=== PATIENT | female | born 1985 | race Caucasian/White ===

== ENCOUNTER → 2019-04-30 | Outpatient (CLI) | payer OTHER, SELFPAY ==
[2019-04-16 10:52] VITALS: BMI 21.7
[2019-04-30 14:26] LABS: hCG Titer Quant., Serum 2840 mIU/mL (1-3)
== END | disposition home or self-care (01) ==
LOC: PAVLAB 13:23
PROVIDERS: Visit Provider Nurse Practitioner Women's Health
DX: O03.9 Complete or unspecified spontaneous abortion without complication (principal)
CPT/HCPCS: 36415; 84702

== ENCOUNTER → 2019-05-02 | Outpatient (CLI) | payer OTHER, SELFPAY ==
[2019-04-16 10:52] VITALS: BMI 21.7
[2019-05-02 12:50] LABS: hCG Titer Quant., Serum 5351 mIU/mL (1-3)
== END | disposition home or self-care (01) ==
LOC: LAB 11:47
PROVIDERS: Nurse Practitioner Women's Health; Family Provider Nurse Practitioner Family; PCP Nurse Practitioner Family; Referring Provider Obstetrics & Gynecology; Visit Provider Obstetrics & Gynecology
DX: O03.9 Complete or unspecified spontaneous abortion without complication (principal)
CPT/HCPCS: 36415; 84702

== ENCOUNTER → 2019-05-09 | Outpatient (CLI) | payer OTHER, SELFPAY ==
[2019-04-16 10:52] VITALS: BMI 21.7
--- NOTE | 2019-05-09 11:26 | US_ITS ---
HISTORY: Assess viability. LMP 03/18/2019. FRANKLIN based on LMP 12/23/2019 61 images. Endovaginal imaging only. Findings: The cervix is closed. Within the uterine fundus is a gestational sac with a double decidual reaction. Myometrium is homogeneous. Within the gestational sac is a yolk sac. The right ovary measures 2.7 x 1.5 x 1.5 cm. Color Doppler and pulse Doppler imaging suggestive of a right ovarian parenchyma. The left ovary measures 2.1 x 3 x 1.9 cm. Color and pulse-wave Doppler imaging is present within the left ovary. Inner yolk sac diameter is 2 mm. Mean sac diameter is 1.5 cm. Rankin-rump length is 8 mm. heart motion is detected at 115 bpm. US/Transvaginal w/Preg US IMPRESSION: SLIUP. EGA 6W5D. FRANKLIN 12/28/2019. at 0101 Reported and signed by: Danny Bautista MD Electronically Signed: Danny Bautista MD at 1:00 EDT Tel , Service support ,
== END | disposition home or self-care (01) ==
PROVIDERS: Family Provider Nurse Practitioner Family; PCP Nurse Practitioner Family; Referring Provider Nurse Practitioner Women's Health; Visit Provider Nurse Practitioner Women's Health
DX: O36.80X0 Pregnancy with inconclusive fetal viability, not applicable or unspecified (principal); Z3A.00 Weeks of gestation of pregnancy not specified; Z87.59 Personal history of other complications of pregnancy, childbirth and the puerperium
CPT/HCPCS: 76817

== ENCOUNTER → 2019-05-19 | Outpatient (CLI) | payer OTHER, SELFPAY ==
[2019-05-19 16:26] VITALS: BMI 21.7
[2019-05-19 18:50] LABS: Chlamydia Trachomatis by PCR Negative (Negative); Neisserai gonorrhoeae by PCR Negative (Negative); Probe Check PASS; Sample Adequacy Control PASS; Specimen Processing Control PASS
== END | disposition home or self-care (01) ==
LOC: LABSPEC 16:27
PROVIDERS: Family Provider Nurse Practitioner Family; PCP Family Medicine; Referring Provider Obstetrics & Gynecology; Visit Provider Obstetrics & Gynecology
DX: Z34.90 Encounter for supervision of normal pregnancy, unspecified, unspecified trimester (principal)
CPT/HCPCS: 87086; 87088; 87491; 87591

== ENCOUNTER → 2019-06-18 | Outpatient (CLI) | payer OTHER, SELFPAY ==
[2019-06-18 14:58] VITALS: BMI 22.6
[2019-06-18 17:10] LABS: Absolute Lymphocyte Count 1.21 X10^3/uL (0.83-4.51); Basophil# 0.04 X10^3/uL; Basophil% 0.5 % (0-1); Eosinophil# 0.06 X10^3/uL; Eosinophils% 0.8 % (0-5); Hematocrit 38.5 % (37-47); Hemoglobin 12.7 g/dL (12.0-15.0); Lymphocyte # 1.21 X10^3/ul (4.0); Lymphocyte % 15.2 % (19-41); Mean Corpuscular Hgb 29.5 pg (27.0-32.0); Mean Corpuscular Volume 89.3 fL (81-99); Mean Platelet Vol. 12.9 fl (6.2-12.0); Monocyte% 7.5 % (0-10); NRBC Flagged by Analyzer 0 % (0-5); Neutrophil # 6.03 X10^3/uL (2.7-7.7); Neutrophil % 75.6 % (47-70); Platelet Count 131 K/mm3 (150-450); RBC Distribution Width CV 13.6 % (11.6-14.6); RBC Distribution Width SD 44.7 fl (35.1-43.9); Red Blood Count 4.31 M/mm3 (4.2-5.4)
[2019-06-18 18:30] LABS: HIV - WCH Non-Reactive (Nonreactive)
[2019-06-20 01:33] LABS: Rapid Plasmin Reagin (RPR) NONREACTIVE (NONREACTIVE)
== END | disposition home or self-care (01) ==
LOC: LAB 15:45
PROVIDERS: Family Provider Nurse Practitioner Family; PCP Nurse Practitioner Family; Referring Provider Obstetrics & Gynecology; Visit Provider Obstetrics & Gynecology
DX: Z34.90 Encounter for supervision of normal pregnancy, unspecified, unspecified trimester (principal)
CPT/HCPCS: 36415; 85025; 86592; 86703; 86762; 86850; 86900

== ENCOUNTER → 2019-08-08 | Outpatient (CLI) | payer OTHER, SELFPAY ==
[2019-07-18 11:20] VITALS: BMI 22.6
--- NOTE | 2019-08-08 08:41 | US_ITS ---
STUDY: SECOND AND THIRD TRIMESTER OBSTETRICAL ULTRASOUND REASON FOR EXAM: Female, 34 years old anatomy. LMP: March 23, 2019. TECHNIQUE: Transabdominal TECHNICAL QUALITY: Adequate. PRIOR ULTRASOUND: Comparison is made with prior study dated May 09, 2019. FINDINGS: There is a single intrauterine fetus. The fetus is in a cephalic presentation. There is demonstrated cardiac activity with a heart rate of 149 bpm. There is a normal amniotic fluid volume. The largest amniotic fluid pocket measures 3.0 cm x 4.7 cm. The amniotic fluid index (TRACEY) is normal. The placenta is anterior in location and is not low lying. There are Grade 0 placental changes. The cervix measures 5 cm in length. The bilateral adnexal regions are normal. BIOMETRY: BPD: 4.78 cm: 20 weeks, 4 days HC: 17.08 cm: 19 weeks, 5 days AC: 14.56 cm: 20 weeks, 0 days FL: 3.09 cm: 19 weeks, 5 days CI: 85% FL/BPD: 65% FL/HC: FL/AC: 21% HC/AC: 1.17 age by current US: 20 weeks, 0 days. FRANKLIN by current US: December 26, 2019. Estimated weight: 311 grams, +/- 45 grams, 48 %. age by prior US: 19 weeks, 5 days. FRANKLIN by prior US: December 28, 2019. Age by LMP: 19 weeks, 5 days. FRANKLIN by LMP: December 28, 2019. ANATOMY: Gender: Male Cranium: Normal lateral ventricles. Normal choroid plexus. Normal cerebellum. Normal cisterna magna. Normal face, nose and lips. Chest: Normal 4-chamber heart. Abdomen/Pelvis: Normal diaphragm. Normal stomach. Normal abdominal wall. Normal cord insertion. Normal 3 vessel cord. Normal kidneys. Normal bladder. The left renal pelvis measures 3 mm the right renal pelvis measures 3.6 mm. Spine: Normal cervical spine. Normal thoracic spine. Normal lumbar spine. Normal sacrum. Extremities: Normal bilateral upper extremities. Normal bilateral lower extremities. US/OB Anatomy Scan IMPRESSION: Single live intrauterine gestation with a mean gestational age of 19 weeks and 5 days. The measurements obtained today follow within thin the normal expected range. Electronically Signed: Evan Wilhelm, at 15:20 EDT , Service support ,
== END | disposition home or self-care (01) ==
LOC: OPUS 08:41
PROVIDERS: Family Provider Nurse Practitioner Family; PCP Nurse Practitioner Family; Referring Provider Obstetrics & Gynecology; Visit Provider Obstetrics & Gynecology
DX: O09.90 Supervision of high risk pregnancy, unspecified, unspecified trimester (principal); Z3A.00 Weeks of gestation of pregnancy not specified
CPT/HCPCS: 76805

== ENCOUNTER → 2019-10-03 | Outpatient (CLI) | payer OTHER, SELFPAY ==
[2019-10-03 08:32] VITALS: BMI 25.7
[2019-10-03 10:01] LABS: Absolute Lymphocyte Count 0.97 X10^3/uL (0.83-4.51); Absolute Neutrophil Count 7.6 X10^3/uL (2.0-7.7); Basophil# 0.05 X10^3/uL; Basophil% 0.5 % (0-1); Eosinophil# 0.12 X10^3/uL; Eosinophils% 1.2 % (0-5); Hematocrit 35.2 % (37-47); Hemoglobin 11.5 g/dL (12.0-15.0); Lymphocyte # 0.97 X10^3/ul (4.0); Mean Corp Hgb Conc 32.7 g/dL (32-36); Mean Corpuscular Hgb 30.5 pg (27.0-32.0); Mean Corpuscular Volume 93.4 fL (81-99); Mean Platelet Vol. 11.8 fl (6.2-12.0); Monocyte# 0.82 X10^3/uL; Monocyte% 8.4 % (0-10); NRBC Flagged by Analyzer 0 % (0-5); Neutrophil # 7.62 X10^3/uL (2.7-7.7); Neutrophil % 78.3 % (47-70); Platelet Count 117 K/mm3 (150-450); RBC Distribution Width CV 13.5 % (11.6-14.6); RBC Distribution Width SD 46.5 fl (35.1-43.9); Red Blood Count 3.77 M/mm3 (4.2-5.4); White Blood Count 9.7 K/mm3 (4.4-11.0)
[2019-10-03 10:31] LABS: Glucose Challenge Gest 1H 50g 114 mg/dL (70-140)
== END | disposition home or self-care (01) ==
LOC: PAVLAB 08:50
PROVIDERS: Family Provider Nurse Practitioner Family; PCP Nurse Practitioner Family; Referring Provider Nurse Practitioner Women's Health; Visit Provider Nurse Practitioner Women's Health
DX: Z34.90 Encounter for supervision of normal pregnancy, unspecified, unspecified trimester (principal)
CPT/HCPCS: 36415; 82950; 85025

== ENCOUNTER → 2019-10-17 08:30 | Outpatient (CLI) | payer OTHER, SELFPAY ==
[2019-10-17 08:06] VITALS: BMI 25.7
[2019-10-17 09:46] LABS: Hepatitis B Surface Antigen Non-Reactive (Nonreactive)
== END ==
PROVIDERS: Family Provider Nurse Practitioner Family; PCP Nurse Practitioner Family; Referring Provider Obstetrics & Gynecology; Visit Provider Obstetrics & Gynecology
DX: O09.90 Supervision of high risk pregnancy, unspecified, unspecified trimester (principal)
CPT/HCPCS: 36415; 87340

== ENCOUNTER → 2019-12-05 08:46 | Outpatient (CLI) | payer SELFPAY ==
[2019-11-14 08:30] VITALS: BMI 25.7
[2019-12-05 08:03] VITALS: BMI 25.7
--- NOTE | 2019-12-05 08:47 | US_ITS ---
STUDY: SECOND AND THIRD TRIMESTER OBSTETRICAL ULTRASOUND REASON FOR EXAM: Female, 34 years old growth LMP: March 23, 2019. TECHNIQUE: Transabdominal TECHNICAL QUALITY: Adequate. PRIOR ULTRASOUND: Comparison is made with prior examination dated August 08, 2019. FINDINGS: There is a single intrauterine fetus. The fetus is in a cephalic presentation. There is demonstrated cardiac activity with a heart rate of 137 bpm. There is a normal amniotic fluid volume. The largest amniotic fluid pocket measures 4.0 cm. The amniotic fluid index (TRACEY) is 11.0 cm. The placenta is anterior in location and is not low lying. There are Grade 1 placental changes. The cervix measures 4.0 cm in length. The adnexal regions are not visualized. BIOMETRY: BPD: 9.48 cm: 38 weeks, 4 days HC: 33.72 cm: 38 weeks, 4 days AC: 32.96 cm: 36 weeks, 6 days FL: 7.11 cm: 36 weeks, 3 days CI: 83% FL/BPD: 75% FL/HC: FL/AC: 22% HC/AC: 1.02 age by current US: 37 weeks, 6 days. FRANKLIN by current US: December 20, 2019. Estimated weight: 3135 grams, +/- 464 grams, 64 %. age by prior US: 37 weeks, 0 days. FRANKLIN by prior US: December 26, 2019. Age by LMP: 36 weeks, 5 days. FRANKLIN by LMP: December 28, 2019. US/OB Limited With Biometrics IMPRESSION: Single live uterine gestation with a mean gestational age of 37 weeks. The measurements obtained today fall within the normal expected range. Electronically Signed: Evan Wilhelm, at 13:11 EST , Service support ,
== END ==
PROVIDERS: Family Provider Nurse Practitioner Family; PCP Nurse Practitioner Family; Referring Provider Nurse Practitioner Women's Health; Visit Provider Nurse Practitioner Women's Health
DX: O09.90 Supervision of high risk pregnancy, unspecified, unspecified trimester (principal); Z3A.00 Weeks of gestation of pregnancy not specified
CPT/HCPCS: 76816; 87081

== ENCOUNTER 2019-12-29 21:57 | Inpatient (IN) | payer OTHER, SELFPAY ==
[2019-10-17 08:06] VITALS: BMI 25.7
[2019-12-29 08:39] VITALS: BMI 25.7
[2019-12-29 20:55] VITALS: BMI 28.0
[2019-12-29] MEDS: Lactated Ringers 500 ML 999 ML IV ×2 (22:50→23:30)
[2019-12-29 22:59] LABS: Absolute Lymphocyte Count 1.21 X10^3/uL (0.83-4.51); Absolute Neutrophil Count 7.8 X10^3/uL (2.0-7.7); Basophil# 0.03 X10^3/uL; Basophil% 0.3 % (0-1); Eosinophil# 0.03 X10^3/uL; Eosinophils% 0.3 % (0-5); Hemoglobin 12.4 g/dL (12.0-15.0); Lymphocyte # 1.21 X10^3/ul (4.0); Mean Corp Hgb Conc 32.6 g/dL (32-36); Mean Corpuscular Hgb 29.1 pg (27.0-32.0); Mean Corpuscular Volume 89.2 fL (81-99); Mean Platelet Vol. 13.9 fl (6.2-12.0); Monocyte# 0.93 X10^3/uL; Monocyte% 9.2 % (0-10); NRBC Flagged by Analyzer 0 % (0-5); Neutrophil # 7.81 X10^3/uL (2.7-7.7); Neutrophil % 77.3 % (47-70); Platelet Count 106 K/mm3 (150-450); RBC Distribution Width CV 13.2 % (11.6-14.6); RBC Distribution Width SD 42.6 fl (35.1-43.9); Red Blood Count 4.26 M/mm3 (4.2-5.4); White Blood Count 10.1 K/mm3 (4.4-11.0)
--- NOTE | 2019-12-29 23:18 | PCM.HP.OB ---
- Problem List (1) Active labor at term Status: Acute (2) Supervision of high risk , antepartum Status: Acute Comment: PRR FRANKLIN 12/28/19 boy (name surprise) Alejo (3) Status: Acute Qualifiers: Comment: carrier, genetic, and ntd screening declined. NL anatomy US (4) Advanced maternal age (AMA) in Status: Acute Comment: discussed genetic screening options. nl 36 week scan History Date of Admission: 12/28/19 Final FRANKLIN: 12/27/19 Gestational age: 40 Weeks and 2 Days History of this : This is a 34 year-old, at 40 weeks gestational age presents IAL with regular ctx, no vb lof good fm. she has had a complicated by AMA. Allergies amoxicillin Allergy (Mild, Verified 12/29/19 08:38) hives Home Medications: Home Medications Vits [Prenatabs FA] 1 tab PO DAILY 12/29/19 Smoking Status: Never smoker Alcohol: None Number of Fetus(es): 1 NST - FHR Rate Baby A Baseline: 130 Variability:: Moderate Accelerations:: 15 x 15 Decelerations:: None NST Reactive:: Yes FHR Category:: Category I Uterine Activity:: q 2-4 History Past Pregnancies: Past Pregnancies Delivery Date Name GA/ Weeks Outcome Route Wt Sex Labor Length Anesthesia Delivery Location Provider FOB Labs: Mom's Labs & Results 12/29/19 12/29/19 22:35 22:35 WBC 10.1 RBC 4.26 Hgb 12.4 Hct 38.0 MCV 89.2 MCH 29.1 MCHC 32.6 RDW Std Deviation 42.6 RDW Coeff of Lisa 13.2 Plt Count 106 L MPV 13.9 H Immature Gran % (Auto) 0.900 Neut % (Auto) 77.3 H Lymph % (Auto) 12.0 L [place] % (Auto) 9.2 Eos % (Auto) 0.3 Baso % (Auto) 0.3 Absolute Neuts (auto) 7.8 H Absolute Lymphs (auto) 1.21 Nucleated RBC % 0 Blood Type Pending Antibody Screen Pending Social History Smoking Status Never smoker Expected Infant Delivery Method: Spontaneous Vaginal Review of Systems Constitutional: Denies: Fever, Malaise Eyes: Denies: Blurred vision, Vision Change HEENT: Denies: Head Aches, Visual Changes Cardiovascular: Denies: Chest Pain, Palpitations Respiratory: Denies: Cough, Shortness of Breath, Wheezing Gastrointestinal: Denies: Abdominal Pain, Diarrhea, Nausea, Vomiting Genitourinary: Denies: Dysuria, Hematuria Musculoskeletal: Denies: Joint Pain, Muscle pain Skin: Denies: Lesions, Rash Neurological: Denies: Blurred vision, Focal weakness, Headaches Psychiatric: Denies: Anxiety, Depression Endocrine: Denies: Heat/ Cold Intolerance Hematologic/ Lymphatic: Denies: Easy Bruising, Easy Bleeding Physical Exam General: Alert, Cooperative, No apparent distress HEENT: Atraumatic, Normocephalic. Negative for: Thyromegaly, Lymphadenopathy Cardiovascular: Regular rate Lungs: Normal air movement Abdomen: Soft, Non Tender, Gravid Neurological: Deep Tendon Reflexes 2+/4 and Symmetrical, Neuro grossly intact. 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 Negative for: Vulvar lesions Estimated gestational size: Appropriate for gestational size Presentation: Cephalic Assessment/Plan All Active Problems (Last Reviewed 12/26/19 @ 07:54 by Fouzia Fregoso) Active labor at term (Acute) Supervision of high risk , antepartum (Acute) (Acute) Advanced maternal age (AMA) in (Acute) This is a 34 year-old, G 1P0 at 40 weeks gestational age presents IAL. Patient presents IAL, plan expectant management for , pitocin/AROM PRN if needed. Pain management: plans epidural. GBS neg. Management of any complications: none I have reviewed the [facility], [facility] and made any clinically relevant updates.
[2019-12-29] MEDS: Ondansetron 4 MG/2 ML Vial IV (23:48)
[2019-12-29] MEDS: fentaNYL-bupivacaine (epidural) 100 ML BAG EPIDURAL (23:55)
[2019-12-29] MEDS: Lactated Ringers 1,000 ML 50 ML IV (23:56)
[2019-12-30] MEDS: fentaNYL-bupivacaine (epidural) 100 ML BAG EPIDURAL (05:01)
[2019-12-30] MEDS: Ondansetron 4 MG/2 ML Vial IV (05:08)
[2019-12-30] MEDS: 0.9% Saline Lock 10 ML Syringe IV (05:08)
[2019-12-30] MEDS: Lactated Ringers 1,000 ML 200 ML IV (06:27)
--- NOTE | 2019-12-30 06:49 | OP.PCM_ITS ---
Problem List (1) Active labor at term Status: Acute (2) Supervision of high risk , antepartum Status: Acute Comment: PRR FRANKLIN 12/28/19 boy (name surprise) Alejo (3) Status: Acute Qualifiers: Comment: carrier, genetic, and ntd screening declined. NL anatomy US (4) Advanced maternal age (AMA) in Status: Acute Comment: discussed genetic screening options. nl 36 week scan Vaginal Delivery Maternal Presentation: Active Labor ial 40 weeks Amniotic Fluid Description: Clear Final FRANKLIN: 12/28/19 Gestational age: 40 Weeks and 2 Days Date of Procedure: 12/30/19 Pre-Operative Diagnosis: ial Post-Operative Diagnosis: same Surgery/ Procedure Performed: Spontaneous Vaginal Delivery Type of Anesthesia: Epidural Description of Procedure: Patient began pushing and delivered the head in the YOANA presentation. The head was delivered atraumatically. The anterior and posterior shoulders delivered without complication followed by the rest of the and the infant was placed on the maternal abdomen. Delayed cord clamping was employed for approximately 60 seconds. Cord was clamped and cut and gentle traction was applied to the cord and the placenta delivered spontaneously immediately following it was noted to be intact with three-vessel cord. The perineum and vagina were inspected and a second-degree perineal laceration that was repaired in the usual fashion with 3-0 Vicryl Rapide. EBL was 300 cc. Patient and tolerated delivery well. Placental Delivery Description: Spontaneous Placenta Disposition: [facility] Cord Vessel Description: 3 Vessels Cord Entanglement: None Estimated Blood Loss: 300 A gender: Male Episiotomy Description: None Laceration: Perineal Extension/lac, 2nd degree Medications given after delivery: IV Pitocin Complications: None Multi Select Codes - Urinary/Genital Urinary/Genital CPT Codes: 11799 Vaginal Delivery [facility]
[2019-12-30] MEDS: Oxytocin 30 units/NS 500 ml 30 UNITS/500 ML IV.SOLN 334 UNITS IV (07:38)
[2019-12-30 11:54] VITALS: BP 108/60; PULSE 81; RESP 20; TEMP 36.6
--- NOTE | 2019-12-30 11:56 | NURSING ---
Epidural removal during observation
[2019-12-30] MEDS: Docusate Sodium 100 MG Capsule PO ×2 (12:14→22:47)
[2019-12-30] MEDS: Dibucaine 30 GM Tube 1 APPLIC TOPICAL (12:14)
--- NOTE | 2019-12-30 13:38 | NURSING ---
epidural cath removed with blue tip intact. tolerated well. Pt up to BR, pericare, steady when up.
[2019-12-30] MEDS: Naproxen 250 MG Tablet 500 MG PO (13:58)
[2019-12-30] MEDS: oxyCODONE 5 MG Tablet PO ×4 (14:42→22:46)
[2019-12-30 15:52] VITALS: BP 111/60; PULSE 69; RESP 16; TEMP 36.8
[2019-12-30 19:39] VITALS: BP 104/61; PULSE 70; RESP 16; TEMP 36.8
--- NOTE | 2019-12-30 22:00 | NURSING ---
this RN provided bedside report to bisi MONTELONGO. that rn to assume care of pt at this time.
[2019-12-30 23:10] VITALS: BP 110/49; PULSE 73; RESP 16; TEMP 37.2
[2019-12-31] MEDS: Naproxen 250 MG Tablet 500 MG PO ×3 (03:15→19:48)
[2019-12-31 03:23] VITALS: BP 105/59; PULSE 82; RESP 16; TEMP 36.6
[2019-12-31] MEDS: Acetaminophen 500 MG Tablet 1000 MG PO (07:56)
[2019-12-31] MEDS: Docusate Sodium 100 MG Capsule PO ×2 (07:57→22:19)
[2019-12-31 07:59] VITALS: BP 105/55; PULSE 69; RESP 16; TEMP 37.1; O2SAT 96
--- NOTE | 2019-12-31 09:30 | PCM.PN.OB ---
Patient Problems: Active and Suspected Problems (Last Reviewed 12/26/19 @ 07:54 by Fouzia Fregoso) Active labor at term (Acute) Subjective: Doing well, discomfort due to perineal hematoma and hemorrhoid. Denies CP, SOB, N,V. Ambulating well, tolerating po. Lochia moderate, going well. - Physical Exam Vitals/I&O's: Vital Signs Temp Pulse Resp BP Pulse Ox 98.8 F 69 16 105/55 L 96 12/31/19 07:59 12/31/19 07:59 12/31/19 07:59 12/31/19 07:59 12/31/19 07:59 Oxygen Delivery Method Room Air Weight: 174 lb 2.643 oz Body Mass Index (BMI) 28.0 Intake and Output for Last 24 Hours 12/29/19 12/30/19 12/31/19 23:59 23:59 23:59 Intake Total 500 / 500 1532.50 / 1532.50 Output Total 500 / 500 Balance 500 / 500 1032.50 / 1032.50 General: Oriented x3 Abdomen: Soft, Non Tender, - - FF below U Current Medications Acetaminophen (Tylenol) 1,000 mg PO Q8H PRN PRN PRN Reason: Pain Score 1-3/10 Last Admin: 12/31/19 07:56 Dose: 1,000 mg Documented by: Bisacodyl (Dulcolax) 10 mg RECTAL UD PRN PRN Reason: If no BM Dibucaine (Dibucaine) 1 applic TOPICAL TID PRN PRN; Protocol PRN Reason: Discomfort Last Admin: 12/30/19 12:14 Dose: 1 oint Documented by: Docusate Sodium (Colace) 100 mg PO BID ALTA Last Admin: 12/31/19 07:57 Dose: 100 mg Documented by: Hydrocortisone (Hytone) 1 applic TOPICAL TID PRN PRN; Protocol PRN Reason: Discomfort Methylergonovine Maleate (Methergine) 0.2 mg IM X1 PRN PRN Reason: Excess bleeding/uterine atony Naproxen (Naprosyn) 500 mg PO Q8H PRN PRN PRN Reason: Pain Score 1-3/10 Last Admin: 12/31/19 03:15 Dose: 500 mg Documented by: Ondansetron HCl (Zofran) 4 mg IV Q4H PRN PRN PRN Reason: Nausea Oxycodone HCl (Oxyir) 5 - 10 mg PO Q4H PRN PRN PRN Reason: Pain Score 4-10/10 Last Admin: 12/30/19 22:46 Dose: 10 mg Documented by: Senna/Docusate Sodium (Senokot-S, Isis-Colace) 1 - 2 tablet PO DAILY PRN PRN PRN Reason: Constipation Simethicone (Mylicon) 80 mg PO PCHS PRN PRN Reason: Indigestion/Stomach pain Sodium Chloride () 5 - 15 ml IV UD PRN PRN Reason: SALINE FLUSH Medical Necessity - Tobacco Use Smoking Status: Never smoker Assessment/Plan All Active Problems (Last Reviewed 12/26/19 @ 07:54 by Fouzia Fregoso) Active labor at term (Acute) Supervision of high risk , antepartum (Acute) (Acute) Advanced maternal age (AMA) in (Acute) s/p PPD # 1 1. routine post delivery care 2. breast feeding- support given 3. rh positive 4. rubella immune 5. discussed management of hematoma, hemorrhoids, ice, pain med, topical pain management, stool softener.
[2019-12-31 14:00] VITALS: BP 104/59; PULSE 78; RESP 16; TEMP 37.5; O2SAT 96
[2019-12-31 18:00] VITALS: BP 97/61; PULSE 72; RESP 16; TEMP 37.1; O2SAT 96
[2019-12-31 19:57] VITALS: BP 110/63; PULSE 80; RESP 16; TEMP 36.8
[2020-01-01 01:30] VITALS: BP 118/73; PULSE 70; RESP 16; TEMP 36.6
[2020-01-01] MEDS: Naproxen 250 MG Tablet 500 MG PO (04:17)
--- NOTE | 2020-01-01 08:10 | PCM.PN.OB ---
Patient Problems: Active and Suspected Problems (Last Reviewed 12/26/19 @ 07:54 by Fouzia Fregoso) Active labor at term (Acute) Subjective: Doing well, no complaints.Pain controlled. Denies CP, SOB, N,V. Ambulating well, tolerating po. Lochia moderate, going well. Perineum feeling better(hematoma). - Physical Exam Vitals/I&O's: Vital Signs Temp Pulse Resp BP Pulse Ox 98 F 70 16 118/73 96 01/01/20 01:30 01/01/20 01:30 01/01/20 01:30 01/01/20 01:30 12/31/19 18:00 Oxygen Delivery Method Room Air Weight: 174 lb 2.643 oz Body Mass Index (BMI) 28.0 Intake and Output for Last 24 Hours 12/30/19 12/31/19 01/01/20 23:59 23:59 23:59 Intake Total 1532.50 / 1532.50 Output Total 500 / 500 Balance 1032.50 / 1032.50 General: Alert, Oriented x3 Abdomen: Non Tender, - - FF below U Current Medications Acetaminophen (Tylenol) 1,000 mg PO Q8H PRN PRN PRN Reason: Pain Score 1-3 Last Admin: 12/31/19 07:56 Dose: 1,000 mg Documented by: Bisacodyl (Dulcolax) 10 mg RECTAL UD PRN PRN Reason: If no BM Dibucaine (Dibucaine) 1 applic TOPICAL TID PRN PRN; Protocol PRN Reason: Discomfort Last Admin: 12/30/19 12:14 Dose: 1 oint Documented by: Docusate Sodium (Colace) 100 mg PO BID ALTA Last Admin: 12/31/19 22:19 Dose: 100 mg Documented by: Hydrocortisone (Hytone) 1 applic TOPICAL TID PRN PRN; Protocol PRN Reason: Discomfort Methylergonovine Maleate (Methergine) 0.2 mg IM X1 PRN PRN Reason: Excess bleeding/uterine atony Naproxen (Naprosyn) 500 mg PO Q8H PRN PRN PRN Reason: Pain Score 1-3/10 Last Admin: 01/01/20 04:17 Dose: 500 mg Documented by: Ondansetron HCl (Zofran) 4 mg IV Q4H PRN PRN PRN Reason: Nausea Oxycodone HCl (Oxyir) 5 - 10 mg PO Q4H PRN PRN PRN Reason: Pain Score 4-10/10 Last Admin: 12/30/19 22:46 Dose: 10 mg Documented by: Senna/Docusate Sodium (Senokot-S, Isis-Colace) 1 - 2 tablet PO DAILY PRN PRN PRN Reason: Constipation Simethicone (Mylicon) 80 mg PO PCHS PRN PRN Reason: Indigestion/Stomach pain Sodium Chloride () 5 - 15 ml IV UD PRN PRN Reason: SALINE FLUSH Medical Necessity - Tobacco Use Smoking Status: Never smoker Assessment/Plan All Active Problems (Last Reviewed 12/26/19 @ 07:54 by Fouzia Fregoso) Active labor at term (Acute) Supervision of high risk , antepartum (Acute) (Acute) Advanced maternal age (AMA) in (Acute) s/p PPD # 2 1. routine post delivery care 2. breast feeding- support given 3. rh positive 4. rubella immune 5. continue stool softeners, OTC oral and topical pain relief 6. home today
--- NOTE | 2020-01-01 08:15 | DCINST_ITS ---
Additional Instructions: If you experience any of the following, contact your healthcare provider. * Bleeding that soaks a pad every hour for 2 hours * Fever 100.4 or higher * Unrelieved incision or abdominal pain * Swelling, redness, discharge or bleeding from your incision or episiotomy site * Your incision begins to separate * Problems urinating (including inability to urinate or burning while urinating). * Visual changes * Severe headache * Flu-like symptoms * Pain or redness in one of both of your breasts * Pain, warmth, tenderness or swelling in your legs, especially the calf area * Frequent nausea and vomiting * Symptoms of depression or anxiety If you experience any of the following, call 911 or go to the nearest Emergency Room. * Chest pain * Problems breathing * Seizure activity * Partial or complete paralysis of a body part, slurred speech, weakness or drooping of the face, or a sudden inability to walk or hold your balance Allergies/Adverse Reactions: Allergies amoxicillin Allergy (Mild, Verified 12/29/19 08:38) hives Medications to take at Discharge Vits [Prenatabs FA] 1 tab PO DAILY 12/29/19 Primary Care Physician: Elizabeth Bolden NP-C [Primary Care Provider] - Test Results: Test results from this visit will be discussed in further detail at your follow- up appointment, if applicable.
--- NOTE | 2020-01-01 08:15 | PCM.DCVAG ---
Additional Instructions: If you experience any of the following, contact your healthcare provider. Bleeding that soaks a pad every hour for 2 hours Fever 100.4 or higher Unrelieved incision or abdominal pain Swelling, redness, discharge or bleeding from your incision or episiotomy site Your incision begins to separate Problems urinating (including inability to urinate or burning while urinating). Visual changes Severe headache Flu-like symptoms Pain or redness in one of both of your breasts Pain, warmth, tenderness or swelling in your legs, especially the calf area Frequent nausea and vomiting Symptoms of depression or anxiety If you experience any of the following, call 911 or go to the nearest Emergency Room. Chest pain Problems breathing Seizure activity Partial or complete paralysis of a body part, slurred speech, weakness or drooping of the face, or a sudden inability to walk or hold your balance Allergies/Adverse Reactions: Allergies amoxicillin Allergy (Mild, Verified 12/29/19 08:38) hives Medications to take at Discharge Vits [Prenatabs FA] 1 tab PO DAILY 12/29/19 Primary Care Physician: Elizabeth Bolden NP-C [Primary Care Provider] - Test Results: Test results from this visit will be discussed in further detail at your follow-up appointment, if applicable.
[2020-01-01 08:35] VITALS: BP 109/64; PULSE 72; RESP 16; TEMP 36.8
[2020-01-01] MEDS: Acetaminophen 500 MG Tablet 1000 MG PO (08:58)
[2020-01-01] MEDS: Docusate Sodium 100 MG Capsule PO (10:34)
[2020-01-01 11:08] VITALS: BP 109/64; PULSE 72; RESP 16; TEMP 36.8
== END 2020-01-01 11:50 | disposition home or self-care (01) | DRG 806 ==
LOC: WPOUT 21:59 → WP 21:59
PROVIDERS: Admitting Provider Obstetrics & Gynecology; PCP Nurse Practitioner Family; Referring Provider Obstetrics & Gynecology; Visit Provider Obstetrics & Gynecology
DX: O48.0 Post-term pregnancy (principal); O87.2 Hemorrhoids in the puerperium; Z37.0 Single live birth; Z3A.40 40 weeks gestation of pregnancy; O70.1 Second degree perineal laceration during delivery; O90.2 Hematoma of obstetric wound
CPT/HCPCS: 59025; 59050; 85025; 86850; 86900; 86901; 99218; J7120; A4216; G0378; J2405

== ENCOUNTER → 2020-01-06 | Outpatient (CLI) | payer OTHER, SELFPAY ==
[2020-01-06 16:16] VITALS: BMI 28.0
[2020-01-06 18:12] LABS: Absolute Lymphocyte Count 1.32 X10^3/uL (0.83-4.51); Basophil# 0.07 X10^3/uL; Basophil% 0.9 % (0-1); Eosinophil# 0.22 X10^3/uL; Eosinophils% 2.9 % (0-5); Hematocrit 38.5 % (37-47); Hemoglobin 12.1 g/dL (12.0-15.0); Lymphocyte # 1.32 X10^3/ul (4.0); Lymphocyte % 17.6 % (19-41); Mean Corp Hgb Conc 31.4 g/dL (32-36); Mean Corpuscular Hgb 28.8 pg (27.0-32.0); Mean Corpuscular Volume 91.7 fL (81-99); Mean Platelet Vol. 13.5 fl (6.2-12.0); Monocyte# 0.81 X10^3/uL; Monocyte% 10.8 % (0-10); NRBC Flagged by Analyzer 0 % (0-5); Neutrophil # 5.04 X10^3/uL (2.7-7.7); Neutrophil % 67.3 % (47-70); Platelet Count 168 K/mm3 (150-450); RBC Distribution Width CV 13.5 % (11.6-14.6); RBC Distribution Width SD 45.5 fl (35.1-43.9); White Blood Count 7.5 K/mm3 (4.4-11.0)
[2020-01-06 19:15] LABS: ALB/GLOB Ratio 0.8 RATIO (0.9-2.4); AST(SGOT) 49 U/L (15-37); Alanine Aminotransfer ALT/SGPT 102 U/L (13-56); Albumin, Serum 2.8 g/dL (3.2-5.0); Alkaline Phosphatase 116 U/L (45-117); Anion Gap 6 (5-15); BUN 13 mg/dL (7-18); BUN/Creat Ratio 15.9 RATIO (10-20); Calcium,Total 8.9 mg/dL (8.5-10.1); Chloride 109 mmol/L (98-107); Creatinine, Serum 0.82 mg/dL (0.55-1.02); EST Glomerular Filtration Rate 84 mL/min (>60); Est Glom Filt Rate - Afr Amer 101 mL/min (>60); Globulin 3.4 g/dL (2.2-4.2); Glucose 77 mg/dL (74-106); Potassium 3.9 mmol/L (3.5-5.1); Protein, Total 6.2 g/dL (6.4-8.2); Sodium Level 141 mmol/L (136-145)
== END | disposition home or self-care (01) ==
LOC: LAB 16:23
PROVIDERS: PCP Nurse Practitioner Family; Referring Provider Obstetrics & Gynecology; Visit Provider Obstetrics & Gynecology
DX: R03.0 Elevated blood-pressure reading, without diagnosis of hypertension (principal)
CPT/HCPCS: 36415; 80053; 85025

== ENCOUNTER 2020-01-07 18:00 | Outpatient (CLI) | payer OTHER, SELFPAY ==
[2020-01-06 16:16] VITALS: BMI 28.0
[2020-01-07 18:59] LABS: Hematocrit 38.5 % (37-47); Hemoglobin 12.3 g/dL (12.0-15.0); Mean Corp Hgb Conc 31.9 g/dL (32-36); Mean Corpuscular Hgb 29.1 pg (27.0-32.0); Mean Platelet Vol. 12.8 fl (6.2-12.0); Platelet Count 166 K/mm3 (150-450); RBC Distribution Width CV 13.5 % (11.6-14.6); RBC Distribution Width SD 44.8 fl (35.1-43.9); Red Blood Count 4.23 M/mm3 (4.2-5.4)
[2020-01-07 19:13] LABS: AST(SGOT) 43 U/L (15-37); Alanine Aminotransfer ALT/SGPT 97 U/L (13-56); Creatinine, Serum 0.88 mg/dL (0.55-1.02); EST Glomerular Filtration Rate 76 mL/min (>60); Est Glom Filt Rate - Afr Amer 93 mL/min (>60); Uric Acid 5.6 mg/dL (2.6-6.0)
[2020-01-07 19:20] LABS: International Normalized Ratio 1.1; Partial Thromboplast Time 26.7 Seconds (24.1-36.2); Prothrombin Time (Protime)PT. 13.6 SECONDS (11.7-14.9)
[2020-01-07 19:22] LABS: Creatinine, Urine (random) < 13.00 mg/dL (NO RANGE EST.); Protein, Urine (Random) < 6.0 mg/dL (<11.9)
--- NOTE | 2020-01-08 00:12 | OB.TRI.NOTE ---
- Problem List (1) Elevated liver enzymes Status: Acute History of Present Illness Date of Service: 01/07/20 Was patient seen by the physician?: Yes Reason For Visit: ELEVATED BLOOD PRESSURE - PPM History of Present Illness: 34-year-old G1, P1 1 week presents due to elevated liver enzymes. Patient had complaints of perineal pain with a normal exam but had a borderline elevated blood pressure in the office therefore labs were drawn and liver enzymes were elevated but platelets were within normal limits. She returns today for follow-up blood pressure check and repeat labs. She denies any headache or blurry vision denies any nausea vomiting and her perineum feels improved. Allergies amoxicillin Allergy (Mild, Verified 01/07/20 18:25) hives Laboratory Studies: Laboratory Tests 01/07/20 01/07/20 01/07/20 Range/Units 18:45 18:45 18:45 WBC 7.0 (4.4-11.0) K/mm3 RBC 4.23 (4.2-5.4) M/mm3 Hgb 12.3 (12.0-15.0) g/dL Hct 38.5 (37-47) % MCV 91.0 (81-99) fL MCH 29.1 (27.0-32.0) pg MCHC 31.9 L (32-36) g/dL RDW Std Deviation 44.8 H (35.1-43.9) fl RDW Coeff of Lisa 13.5 (11.6-14.6) % Plt Count 166 (150-450) K/mm3 MPV 12.8 H (6.2-12.0) fl PT 13.6 (11.7-14.9) SECONDS INR 1.1 APTT 26.7 (24.1-36.2) Seconds Creatinine 0.88 (0.55-1.02) mg/dL Est GFR (MDRD) Af Amer 93 (>60) mL/min Est GFR (MDRD) Non-Af 76 (>60) mL/min Uric Acid 5.6 (2.6-6.0) mg/dL AST 43 H (15-37) U/L ALT 97 H (13-56) U/L U Random Total Protein (<11.9) mg/dL Urine Creatinine (NO RANGE EST.) mg/dL Protein/Creatinin Ratio 01/07/20 Range/Units 18:30 WBC (4.4-11.0) K/mm3 RBC (4.2-5.4) M/mm3 Hgb (12.0-15.0) g/dL Hct (37-47) % MCV (81-99) fL MCH (27.0-32.0) pg MCHC (32-36) g/dL RDW Std Deviation (35.1-43.9) fl RDW Coeff of Lisa (11.6-14.6) % Plt Count (150-450) K/mm3 MPV (6.2-12.0) fl PT (11.7-14.9) SECONDS INR APTT (24.1-36.2) Seconds Creatinine (0.55-1.02) mg/dL Est GFR (MDRD) Af Amer (>60) mL/min Est GFR (MDRD) Non-Af (>60) mL/min Uric Acid (2.6-6.0) mg/dL AST (15-37) U/L ALT (13-56) U/L U Random Total Protein < 6.0 (<11.9) mg/dL Urine Creatinine < 13.00 (NO RANGE EST.) mg/dL Protein/Creatinin Ratio TNP Review of Systems Constitutional: Denies: Anorexia, Fever Eyes: Denies: Blurred vision Respiratory: Denies: Cough Gastrointestinal: Denies: Abdominal Pain Physical Exam General: Alert, Oriented x3 Cardiovascular: Regular rate Lungs: Normal air movement Abdomen: Soft, Non Tender Extremities:: No edema Neurological: Deep Tendon Reflexes 2+/4 and Symmetrical, Neuro grossly intact. Negative for: Clonus Impression/Plan 34-year-old G1, P1 1 week presents with elevated liver enzymes Repeat labs stable and improving. Blood pressures within normal limits. Urine negative for protein. Patient denies any infectious symptoms we will plan on following and repeating labs in 1 week as an outpatient. Multi Select Codes - Visit Charges Office Visit/Consults: 36856 OV L3 Est
== END 2020-01-07 19:40 | disposition home or self-care (01) ==
LOC: WPOUT 18:12 → WP 18:12
PROVIDERS: PCP Nurse Practitioner Family; Visit Provider Obstetrics & Gynecology
DX: O99.89 Other specified diseases and conditions complicating pregnancy, childbirth and the puerperium (principal); R94.5 Abnormal results of liver function studies
CPT/HCPCS: 36415; 82565; 82570; 84156; 84450; 84460; 84550; 85027; 85610; 85730; 99218; G0378

== ENCOUNTER → 2020-01-12 | Outpatient (CLI) | payer OTHER, SELFPAY ==
[2020-01-12 13:33] VITALS: BMI 28.0
[2020-01-12 14:12] LABS: Absolute Lymphocyte Count 1.47 X10^3/uL (0.83-4.51); Absolute Neutrophil Count 5.7 X10^3/uL (2.0-7.7); Basophil% 1.2 % (0-1); Eosinophil# 0.22 X10^3/uL; Eosinophils% 2.6 % (0-5); Hematocrit 47.3 % (37-47); Hemoglobin 15.1 g/dL (12.0-15.0); Lymphocyte # 1.47 X10^3/ul (4.0); Lymphocyte % 17.5 % (19-41); Mean Corp Hgb Conc 31.9 g/dL (32-36); Mean Corpuscular Hgb 28.9 pg (27.0-32.0); Mean Corpuscular Volume 90.4 fL (81-99); Mean Platelet Vol. 12.2 fl (6.2-12.0); Monocyte# 0.79 X10^3/uL; Monocyte% 9.4 % (0-10); NRBC Flagged by Analyzer 0 % (0-5); Neutrophil # 5.73 X10^3/uL (2.7-7.7); Neutrophil % 68.5 % (47-70); Platelet Count 228 K/mm3 (150-450); RBC Distribution Width CV 13.2 % (11.6-14.6); RBC Distribution Width SD 44.1 fl (35.1-43.9); Red Blood Count 5.23 M/mm3 (4.2-5.4); White Blood Count 8.4 K/mm3 (4.4-11.0)
[2020-01-12 14:34] LABS: ALB/GLOB Ratio 0.9 RATIO (0.9-2.4); AST(SGOT) 23 U/L (15-37); Alanine Aminotransfer ALT/SGPT 49 U/L (13-56); Albumin, Serum 3.4 g/dL (3.2-5.0); Alkaline Phosphatase 105 U/L (45-117); Anion Gap 5 (5-15); BUN 13 mg/dL (7-18); Calcium,Total 9.2 mg/dL (8.5-10.1); Chloride 109 mmol/L (98-107); Creatinine, Serum 0.93 mg/dL (0.55-1.02); EST Glomerular Filtration Rate 72 mL/min (>60); Est Glom Filt Rate - Afr Amer 87 mL/min (>60); Globulin 3.7 g/dL (2.2-4.2); Glucose 77 mg/dL (74-106); Potassium 4.3 mmol/L (3.5-5.1); Protein, Total 7.1 g/dL (6.4-8.2); Sodium Level 140 mmol/L (136-145)
== END | disposition home or self-care (01) ==
PROVIDERS: PCP Nurse Practitioner Family; Referring Provider Obstetrics & Gynecology; Visit Provider Obstetrics & Gynecology
DX: O13.9 Gestational [pregnancy-induced] hypertension without significant proteinuria, unspecified trimester (principal); Z3A.00 Weeks of gestation of pregnancy not specified
CPT/HCPCS: 36415; 80053; 85025

== ENCOUNTER → 2021-01-14 | Outpatient (CLI) | payer OTHER, SELFPAY ==
[2021-01-14 11:31] VITALS: BMI 22.6
== END | disposition home or self-care (01) ==
LOC: LABSPEC 12:51
PROVIDERS: PCP Nurse Practitioner Family; Referring Provider Obstetrics & Gynecology; Visit Provider Obstetrics & Gynecology
DX: Z12.4 Encounter for screening for malignant neoplasm of cervix (principal)
CPT/HCPCS: 87624; 88175; G0145

== ENCOUNTER → 2021-06-09 14:23 | Outpatient (CLI) | payer OTHER, SELFPAY ==
[2021-06-09 14:18] VITALS: BMI 22.6
[2021-06-09 14:52] LABS: Absolute Neutrophil Count 5.8 X10^3/uL (2.0-7.7); Basophil# 0.05 X10^3/uL; Basophil% 0.7 % (0-1); Eosinophils% 1.3 % (0-5); Hematocrit 40.5 % (37-47); Hemoglobin 13.4 g/dL (12.0-15.0); Lymphocyte % 15.6 % (19-41); Mean Corp Hgb Conc 33.1 g/dL (32-36); Mean Corpuscular Hgb 29.2 pg (27.0-32.0); Mean Corpuscular Volume 88.2 fL (81-99); Mean Platelet Vol. 12.4 fl (6.2-12.0); Monocyte# 0.56 X10^3/uL; Monocyte% 7.3 % (0-10); NRBC Flagged by Analyzer 0 % (0-5); Neutrophil # 5.75 X10^3/uL (2.7-7.7); Neutrophil % 74.7 % (47-70); Platelet Count 158 K/mm3 (150-450); RBC Distribution Width CV 13.1 % (11.6-14.6); RBC Distribution Width SD 42.4 fl (35.1-43.9); Red Blood Count 4.59 M/mm3 (4.2-5.4); White Blood Count 7.7 K/mm3 (4.4-11.0)
[2021-06-09 17:46] LABS: Amphetamine Urine VISTA NEGATIVE (<1000 ng/mL); Barbiturate Urine VISTA NEGATIVE (< 200 ng/mL); Benzodiazepine Urine VISTA NEGATIVE (< 200 ng/mL); Cocaine Urine VISTA NEGATIVE (< 300 ng/mL); Ecstacy Urine VISTA NEGATIVE (< 500 ng/mL); Methadone Urine VISTA NEGATIVE (< 300 ng/mL); PCP Urine VISTA NEGATIVE (< 25 ng/mL); THC Urine VISTA NEGATIVE (< 50 ng/mL); Vista UDS pH Range 7
[2021-06-09 23:57] LABS: HIV - WCH Non-Reactive (Nonreactive); Hepatitis B Surface Antigen Non-Reactive (Nonreactive); Hepatitis C Antibody Non-Reactive (Nonreactive); Rubella IgG Reactive (Nonreactive); Syphilis Antibodies Non-reactive
[2021-06-13 05:06] LABS: Chlamydia By Nucleic Acid AMP Negative (Negative)
[2021-06-13 12:38] LABS: Gonococcus By Nucleic Acid AMP Negative (Negative)
== END ==
PROVIDERS: PCP Nurse Practitioner Family; Referring Provider Obstetrics & Gynecology; Visit Provider Obstetrics & Gynecology
DX: Z34.90 Encounter for supervision of normal pregnancy, unspecified, unspecified trimester (principal)
CPT/HCPCS: 36415; 80307; 85025; 86703; 86762; 86780; 86803; 86850; 86900; 86901; 87086; 87088; 87340; 87491; 87591

== ENCOUNTER → 2021-08-19 12:12 | Outpatient (CLI) | payer OTHER, SELFPAY ==
[2021-07-08 09:19] VITALS: BMI 22.6
--- NOTE | 2021-08-19 12:32 | US_ITS ---
STUDY: SECOND AND THIRD TRIMESTER OBSTETRICAL ULTRASOUND REASON FOR EXAM: Female, 36 years old anatomy scan LMP: 03/31/2021. TECHNIQUE: Transabdominal and Transvaginal TECHNICAL QUALITY: Adequate. PRIOR ULTRASOUND: None. FINDINGS: There is a single intrauterine fetus. The fetus is in a transverse lie with the head on the maternal right side. There is demonstrated cardiac activity with a heart rate of 153 bpm. There is a normal amniotic fluid volume. The largest amniotic fluid pocket measures 5.1 cm x 3.5 cm. The amniotic fluid index (TRACEY) is within normal limits. The placenta is anterior with a marginal previa. There are Grade 0 placental changes. The cervix measures 4.7 cm in length. The bilateral adnexal regions are normal. BIOMETRY: BPD: 4.9 cm: 20 weeks, 5 days HC: 17.9 cm: 20 weeks, 2 days AC: 14.9 cm: 20 weeks, 1 days FL: 3.1 cm: 19 weeks, 4 days CI: 80% FL/BPD: 64% FL/HC: FL/AC: 21% HC/AC: 1.2 age by current US: 19 weeks, 6 days. FRANKLIN by current US: 01/07/2022. Estimated weight: 3:30 grams, +/- 49 grams, 4 %. Age by LMP: 20 weeks, 1 days. FRANKLIN by LMP: 01/05/2022. ANATOMY: Gender: Female Cranium: Normal lateral ventricles. Normal choroid plexus. Normal cerebellum. Normal cisterna magna. Normal face, nose and lips. Chest: Normal 4-chamber heart. Abdomen/Pelvis: Normal diaphragm. Normal stomach. Normal abdominal wall. Normal cord insertion. Normal 3 vessel cord. Normal kidneys. Normal bladder. Spine: Normal cervical spine. Normal thoracic spine. Normal lumbar spine. Normal sacrum. Extremities: Normal bilateral upper extremities. Normal bilateral lower extremities. US/OB Anatomy Scan IMPRESSION: Single live intrauterine gestation with a mean gestational age of 19 weeks and 6 days. Electronically Signed: Evan Wilhelm MD at 14:11 EDT , Service support ,
== END ==
PROVIDERS: PCP Nurse Practitioner Family; Referring Provider Obstetrics & Gynecology; Visit Provider Obstetrics & Gynecology
DX: O09.529 Supervision of elderly multigravida, unspecified trimester (principal); Z3A.00 Weeks of gestation of pregnancy not specified
CPT/HCPCS: 76805; 76817

== ENCOUNTER → 2021-10-03 10:34 | Outpatient (CLI) | payer OTHER, SELFPAY ==
[2021-10-03 12:28] LABS: Glucose Challenge Gest 1H 50g 94 mg/dL (70-140)
== END ==
PROVIDERS: PCP Nurse Practitioner Family; Referring Provider Obstetrics & Gynecology; Visit Provider Obstetrics & Gynecology
DX: O09.90 Supervision of high risk pregnancy, unspecified, unspecified trimester (principal); Z3A.00 Weeks of gestation of pregnancy not specified
CPT/HCPCS: 36415; 82950

== ENCOUNTER → 2021-10-13 07:51 | Outpatient (CLI) | payer OTHER, SELFPAY ==
--- NOTE | 2021-10-13 08:17 | US_ITS ---
STUDY: SECOND AND THIRD TRIMESTER OBSTETRICAL ULTRASOUND - LIMITED REASON FOR EXAM: Female, 36 years old placental location LMP: 03/31/2021. PRIOR ULTRASOUND: Comparison is made with prior study 08/19/2021. TECHNIQUE: Transabdominal and Transvaginal TECHNICAL QUALITY: Adequate. FINDINGS: There is a single intrauterine fetus. The fetus is in a breech presentation. There is demonstrated cardiac activity with a heart rate of 137 bpm. There is a normal amniotic fluid volume. The largest amniotic fluid pocket measures 9.3 cm x 3.5 cm. The amniotic fluid index (TRACEY) is within normal limits. The placenta is anterior in location and is not low lying. There are Grade 1 placental changes. The cervix measures 5.6 cm in length. BIOMETRY: Age by LMP: 28 weeks, 0 days. FRANKLIN by LMP: 01/05/2022. IMPRESSION: The placenta is anterior and not low lying at this time. Electronically Signed: Evan Wilhelm MD at 10:18 EST , Service support , STUDY: FIRST TRIMESTER OBSTETRICAL ULTRASOUND REASON FOR EXAM: Female, 36 years old placental location LMP: 03/31/2021 TECHNIQUE: Transvaginal TECHNICAL QUALITY: Adequate. PRIOR ULTRASOUND: Comparison is made with prior examination of 08/19/2021. FINDINGS: Anterior placenta. The placenta is not low-lying. The cervical length measures 5.6 cm. US/OB Limited (No Biometrics) IMPRESSION: The cervical length measures 5.6 cm. Anterior placenta is not low-lying. Electronically Signed: Evan Wilhelm MD at 10:19 EST , Service support ,
== END ==
PROVIDERS: PCP Nurse Practitioner Family; Referring Provider Obstetrics & Gynecology; Visit Provider Obstetrics & Gynecology
DX: O44.20 Partial placenta previa NOS or without hemorrhage, unspecified trimester (principal); Z3A.00 Weeks of gestation of pregnancy not specified
CPT/HCPCS: 76815; 76817

== ENCOUNTER → 2021-10-31 09:00 | Outpatient (CLI) | payer OTHER, SELFPAY ==
[2021-10-31 09:25] LABS: Absolute Lymphocyte Count 1.17 X10^3/uL (0.83-4.51); Absolute Neutrophil Count 7.5 X10^3/uL (2.0-7.7); Basophil# 0.04 X10^3/uL; Basophil% 0.4 % (0-1); Eosinophil# 0.15 X10^3/uL; Eosinophils% 1.5 % (0-5); Hematocrit 34.7 % (37-47); Hemoglobin 11.7 g/dL (12.0-15.0); Lymphocyte # 1.17 X10^3/ul (0.83-4.51); Lymphocyte % 11.7 % (19-41); Mean Corp Hgb Conc 33.7 g/dL (32-36); Mean Corpuscular Hgb 30.2 pg (27.0-32.0); Mean Corpuscular Volume 89.7 fL (81-99); Mean Platelet Vol. 11.7 fl (6.2-12.0); Monocyte# 0.98 X10^3/uL; Monocyte% 9.8 % (0-10); NRBC Flagged by Analyzer 0 % (0-5); Neutrophil # 7.48 X10^3/uL (2.7-7.7); Neutrophil % 75.2 % (47-70); Platelet Count 116 K/mm3 (150-450); RBC Distribution Width CV 13.3 % (11.6-14.6); RBC Distribution Width SD 43.4 fl (35.1-43.9); Red Blood Count 3.87 M/mm3 (4.2-5.4)
== END ==
PROVIDERS: PCP Nurse Practitioner Family; Visit Provider Obstetrics & Gynecology
DX: O09.90 Supervision of high risk pregnancy, unspecified, unspecified trimester (principal); Z3A.00 Weeks of gestation of pregnancy not specified
CPT/HCPCS: 36415; 85025

== ENCOUNTER 2021-12-13 08:58 | Outpatient (CLI) | payer OTHER, SELFPAY ==
--- NOTE | 2021-12-13 09:02 | US_ITS ---
STUDY: SECOND AND THIRD TRIMESTER OBSTETRICAL ULTRASOUND REASON FOR EXAM: Female, 36 years old . growth. LMP: 03/31/2021. TECHNIQUE: Transabdominal TECHNICAL QUALITY: Adequate. PRIOR ULTRASOUND: Comparison is made with prior study dated 10/13/2021. FINDINGS: There is a single intrauterine fetus. The fetus is in a cephalic presentation. There is demonstrated cardiac activity with a heart rate of 144 bpm. There is a normal amniotic fluid volume. The largest amniotic fluid pocket measures 5.5 cm. The amniotic fluid index (TRACEY) is 16.5 cm. The placenta is anterior in location and is not low lying. There are Grade 1 placental changes. The cervical length was not measured due to the head position. The adnexal regions are not visualized. BIOMETRY: BPD: 9.5 cm: 38 weeks, 5 days HC: 33.9 cm: 38 weeks, 6 days AC: 32.6 cm: 36 weeks, 3 days FL: 7.04 cm: 36 weeks, 0 days CI: 83% FL/BPD: 74% FL/HC: FL/AC: 22% HC/AC: 1.04 age by current US: 37 weeks, 6 days. FRANKLIN by current US: 12/28/2021. Estimated weight: 3069 grams, +/- 460 grams, 60 %. age by prior US: 36 weeks, 3 days. FRANKLIN by prior US: 01/07/2022. Age by LMP: 36 weeks, 5 days. FRANKLIN by LMP: 01/05/2022. US/OB Limited With Biometrics IMPRESSION: Single live uterine gestation with a mean gestational age of 36 weeks and 3 days. The measurements obtained today fall within the normal expected range. Electronically Signed: Evan Wilhelm MD at 10:04 EST , Service support ,
== END 2021-12-13 23:59 | disposition short-term general hospital (02) ==
LOC: OPUS 16:27 → LABSPEC 16:29
PROVIDERS: PCP Nurse Practitioner Family; Referring Provider Obstetrics & Gynecology; Visit Provider Obstetrics & Gynecology
DX: O09.522 Supervision of elderly multigravida, second trimester (principal)
CPT/HCPCS: 76816; 87077; 87081; 87186

== ENCOUNTER 2022-01-02 10:13 | Outpatient (CLI) | payer OTHER, SELFPAY | END 2022-01-02 23:59 | disposition home or self-care (01) | LOC: LABSPEC 10:14 | PROVIDERS: PCP Nurse Practitioner Family; Visit Provider Obstetrics & Gynecology | DX: Z34.93 Encounter for supervision of normal pregnancy, unspecified, third trimester (principal); Z3A.38 38 weeks gestation of pregnancy; Z20.822 Contact with and (suspected) exposure to COVID-19 | CPT/HCPCS: 87635; U0003; U0005 ==

== ENCOUNTER 2022-01-05 07:05 | Inpatient (IN) | payer OTHER, SELFPAY ==
[2022-01-05] VITALS (42 sets, daily range): BP systolic 82–114; BP diastolic 35–78; PULSE 71–101; RESP 15–16; TEMP 36.1–37.1; O2SAT 97–100; BMI 27.1
--- NOTE | 2022-01-05 07:35 | HP.PCM.OB_ITS ---
HPI - General General Date of Admission: 01/05/22 HPI Narrative FOX DURAN, is a 36 @ 40 weeks 0d who presents to L&D for IOL due to Advanced Maternal Age Maternal Data Information FRANKLIN Calculator Estimated Delivery Date Method Current WG Current Estimate 01/05/22 LMP (Certain) 40w 0d Other Estimates 01/03/22 Ultrasound #1 40w 2d PFSH PFSH Medical History Marginal placenta previa Positive GBS test Home Medications vit,[id number] 1 tab PO DAILY 12/29/19 [History Last Taken 12/29/19 07:30] Allergy/AdvReac Type Severity Reaction Status Date / Time amoxicillin Allergy Mild hives Verified 12/27/21 08:23 Family History Father CVA (cerebral vascular accident) Grandmother Colon cancer Grandfather Cancer Social History adopted: No household members: spouse and children number of children: 1 pets and animals: Yes (no litter box contact) pets and animals: cat(s) Smoking Status: Never smoker alcohol intake: never substance use type: does not use caffeine: No what type of physical activity do you participate in: walking and weight training frequency: 5-6 times per week seatbelt use: always do you feel safe at home: Yes additional social history: Ivhleuq-Gkw-Fxcsmkgurju 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 Date Name GA/Weeks Outcome Route Bth Weight Gen Labor Lgth Anesthesia Del Locatn Provider FOB 12/30/19 Dom 40 live - full term Male epidur al [facility] Visit Details Expected Delivery Route/Plan Labor Preferences- CB/BF classes: no labor support person: [place] labor intervention preferences: [] pain management options preferred: epidural cut cord/dad catch: cord : yes PP control planned: discussed discussed possible routes of delivery and associated risks: [] special requests: [] Plans covid vaccine: non immune, vaccinated flu vaccine: given tdap vaccine: given rhogam: na LARC form signed: yes movement and labor precautions reviewed. Problem list reviewed and updated with the most current plan of care details and appropriate orders placed. Relevant counseling for the gestational age provided. Continue routine care and follow up unless otherwise noted in visit notes/problem list details OB Flowsheet Initial Weight: 135 lb Date -?-?-?-?-?-?-?-?-?-?-?-?- EGA Weight BP Urine Prot -?-?-?-?-?-?-?-?-?-?--?-?- Glucose FHR FuHt Pres Dilation -?-?-?-?-?-?-?-?-?-?-?-?- Effaced St Visit Note 06/09/21 -?-?-?-?-?-?-?-?-?-?-?-?- 10w 0d 137 lb (+2 lb) 108/76 -?-?-?-?-?-?-?-?-?-?-?-?- 170 -?-?-?-?-?-?-?-?-?-?-?-?- SM- CRL 2.95cm c ons with LMP 06/15/21 -?-?-?-?-?-?-?-?-?-?-?-?- 10w 6d 138 lb (+3 lb) 120/82 -?-?-?-?-?-?-?-?-?-?-?-?- 185 -?-?-?-?-?-?-?-?-?-?-?-?- GP - work in for spotting. No heavy bleeding. US nl. No evidence of ALTA. 07/08/21 -?-?-?-?-?-?-?-?-?-?-?-?- 14w 1d 141 lb (+6 lb) 124/70 Negative -?-?-?-?-?-?-?-?-?--?-?-?- Negative 145 -?-?-?-?-?-?-?-?-?-?-?-?- GP - no cramping or bleeding. Anatomy scan ordered. 08/08/21 -?-?-?-?-?-?-?-?-?-?-?-?- 18w 4d 147 lb (+12 lb) 100/60 Negative -?-?-?-?-?-?-?-?-?-?-?-?- Negative 160 -?-?-?-?-?-?-?-?-?-?-?-?- SM- no vb lof so me fm 09/05/21 -?-?-?-?-?-?-?-?-?-?-?-?- 22w 4d 153 lb (+18 lb) 118/62 Negative -?-?-?-?-?-?-?-?-?-?-?-?- Negative 163 -?-?-?-?-?-?-?-?-?-?-?-?- MH-Good Fm. No V B, LOF. Rpt US 09/12 to recheck placenta. 10/03/21 -?-?-?-?-?-?-?-?-?-?-?-?- 26w 4d 159 lb (+24 lb) 100/72 Negative -?-?-?-?-?-?-?-?-?-?-?-?- Negative 140 26 -?-?-?-?-?-?-?-?-?-?-?-?- SM- no vb lof go od fm no regular ctx 10/31/21 -?-?-?-?-?-?-?-?-?-?-?-?- 30w 4d 162 lb 4 oz (+27 lb 4 oz) 122/70 Negative -?-?-?-?-?-?-?-?-?-?-?-?- Negative -?-?-?-?-?-?-?--?-?-?-?-?- 11/15/21 -?-?-?-?-?-?-?-?-?-?-?-?- 32w 5d 166 lb 8 oz (+31 lb 8 oz) 114/72 Negative -?-?-?-?-?-?-?-?-?-?-?-?- Negative 143 32 -?-?-?-?-?-?-?-?-?-?-?-?- JV- No Lof, vagi nal bleeding, dec fm. No complaints. 11/28/21 -?-?-?-?-?-?-?-?-?-?-?-?- 34w 4d 168 lb (+33 lb) 98/72 -?-?-?-?-?-?-?-?-?-?-?-?- 240 34 -?-?-?-?-?-?-?-?-?-?-?-?- SM- no vb lof go od fm no regular ctx 12/13/21 -?-?-?-?-?-?-?-?-?-?-?-?- 36w 5d 169 lb 8 oz (+34 lb 8 oz) 120/86 Negative -?-?-?-?-?-?-?-?-?-?-?-?- Negative 145 35 Cephalic 3 -?-?-?-?-?-?-?-?-?-?-?-?- 30 -4 JV- no lof , vaginal bleeding, or dec fm. gbs collected. bedside us for position performed. 12/19/21 -?-?-?-?-?-?-?-?-?-?-?-?- 37w 4d 171 lb 6 oz (+36 lb 6 oz) 110/80 Negative -?-?-?-?-?-?-?-?-?-?-?-?- Negative 150 36 Cephalic -?-?-?-?-?-?-?-?-?-?-?-?- SM- no vb lof go od fm no regualr ctx 12/27/21 -?-?-?-?-?-?-?-?-?-?-?-?- 38w 5d 170 lb 6 oz (+35 lb 6 oz) 100/70 Negative -?-?-?-?-?-?-?-?-?-?-?-?- Negative 156 37 Cephalic 3 -?-?-?-?-?-?-?-?-?-?-?-?- 50 -3 JV- pt wou ld like to wait for 40 weeks before being induced. r/b/a discussed. paperwork filled out. 01/02/22 -?-?-?-?-?-?-?-?-?-?-?-?- 39w 4d 171 lb (+36 lb) 114/70 Negative -?-?-?-?-?-?-?-?-?-?-?-?- Negative 145 38 Cephalic 3 -?-?-?-?-?-?-?-?-?-?-?-?- 50 -3 SM- no vb lof good fm no regular ctx discussed IOL 01/05/22 -?-?-?-?-?-?-?-?-?-?-?-?- 40w 0d 173 lb 1.006 oz (+38 lb 1.006 oz) 114/78 -?-?-?-?-?-?-?-?-?-?-?-?- -?-?-?-?-?-?-?-?-?-?-?-?- ROS Constitutional Constitutional: Denies change in weight, fatigue, fever(s), headache(s), poor appetite or weakness Eyes Eyes: Denies blurry vision, change in vision, seeing flashes or spots in vision ENT HEENT: Denies dizziness, headache(s), loss taste/smell or sore throat Cardiovascular Cardiovascular: Denies chest pain, dizziness, dyspnea, irregular heart rhythm, leg edema, palpitations, rapid heart rate or vomiting Respiratory/Chest Respiratory/Chest: Denies chest tightness, cough, dyspnea or breast pain Gastrointestinal Gastrointestinal: Denies abdominal pain, anorexia, constipation, cramping, diarrhea, hemorrhoids, vomiting or weight changes Genitourinary Genitourinary: Denies dysuria, flank pain, genital lesions, genital pain, urinary frequency or urinary urgency Musculoskeletal Musculoskeletal: Denies back pain, difficulty walking, joint pain, limited range of motion, muscle cramps or numbness Integumentary Integumentary: Denies lesions or unusual bruising Neurologic Neurologic: Denies abnormal movements, abnormal speech, dizziness, numbness, seizure-like activity or syncope Psychiatric Psychiatric: Denies anxiety, behavioral changes, change in appetite, change in l ibido, cognitive impairment, confusion, depression, difficulty concentrating, hallucinations or suicidal thoughts Endocrine Endocrinology: Denies excessive sweating, polydipsia or polyuria Hematologic/Lymphatic Hematologic/Lymphatic: Denies easy bleeding, easy bruising or lymphadenopathy Allergic/Immunologic Allergic/Immunologic: Denies itchy eyes, lip swelling, seasonal rhinorrhea, rhinitis, throat swelling, tongue swelling, eczemia, wheezing or asthma Vital Signs Vital Signs Vital Signs: 01/05/22 07:28 Pulse Rate 81 Blood Pressure 114/78 BP Systolic 114 BP Diastolic 78 Physical Exam Const alert, oriented x3, no apparent distress and healthy appearing General Appearance: cooperative; Negative for anxious HEENT normocephalic Face and Sinus: normal facial exam Eyes EOMs intact bilaterally and no scleral icterus General Eye: normal appearance of both eyes Neck full ROM and supple Lymph Lymphatic: no lymphadenopathy noted Chest Chest: abnormal inspection of the chest Resp normal respiratory effort Effort and Inspection: able to speak in complete sentences Cardio regular rate GI soft to palpation and non-tender Inspection: gravid Palpation: soft; Negative for tender external exam normal Back/Spine no CVA tenderness Extremity normal to inspection, full ROM and no clubbing, cyanosis or edema General Extremity: Negative for calf tenderness or edema Skin Lesions: no lesions Rashes: no rashes Psych mental status grossly normal Labs Labs Labs: Blood Type B POSITIVE Antibody Screen NEGATIVE Hct 34.7 % (37-47) L Hgb 11.7 g/dL (12.0-15.0) L Pap Smear Negative Obstetrics US Syphilis Total Ab Non-reactive Rubella IgG Antibody Reactive (Nonreactive) Hep Bs Antigen Non-Reactive (Nonreactive) Neisseria gonorrhoeae DNA (MYNOR) Negative (Negative) HIV 1&2 Antibody Non-Reactive (Nonreactive) C.trachomatis DNA (PCR) Negative (Negative) Glucose 1 Hr 50 gm 94 mg/dL (70-140) Rhogam given: No Assessment & Plan (1) Positive GBS test: COMMENT: treat in labor (2) Short interval between pregnancies affecting , antepartum: COMMENT: delivered Dom 12/2019 (3) AMA (advanced maternal age) multigravida 35+: QUALIFIERS: Trimester: second trimester Qualified Code(s): O09.522 - Supervision of elderly multigravida, second trimester COMMENT: declines NIPT. plan 36 week growth US, 12/13 nl growth US. plan IOL 40 weeks (4) Supervision of high risk , antepartum: COMMENT: PRR FRANKLIN 01/05/22 girl Martha PC: Dom. Spouse:Alejo (5) : QUALIFIERS: Weeks of gestation: 38 weeks Qualified Code(s): Z3A.38 - 38 weeks gestation of COMMENT: anatomy nl, declines afp, genetic, and carrier screen. COVID neg (6) Normal Pap smear: COMMENT: needs repeat PP due to not enough cells to run HPV. PLAN: Patient presents IOL, plan management for with pitocin/AROM. Pain management: plans epidural. GBS positive. Pt has a h/o amoxicillin rash without anaphylaxis. She states it happened one time as a kid. She is willing to try pcn in labor and I feel this is reasonable. Management of any complications: none I have reviewed the [facility] and made any clinically relevant updates. Charges/Coding Multi Select Codes Visit Charges Visit Charges: 66441 Init Hosp L3
[2022-01-05] MEDS: Lactated Ringers 1,000 ML 50 ML IV (07:50)
[2022-01-05] MEDS: Oxytocin 30 units/NS 500 ml 30 UNITS/500 ML IV.SOLN IV (08:11)
--- NOTE | 2022-01-05 08:13 | NURSING ---
0755: CBC and type and screen drawn from left antecubital on first attempt. Sent to lab.
[2022-01-05 08:18] LABS: Absolute Lymphocyte Count 1.19 X10^3/uL (0.83-4.51); Absolute Neutrophil Count 5.8 X10^3/uL (2.0-7.7); Basophil# 0.04 X10^3/uL; Basophil% 0.5 % (0-1); Eosinophil# 0.09 X10^3/uL; Eosinophils% 1.1 % (0-5); Lymphocyte # 1.19 X10^3/ul (0.83-4.51); Lymphocyte % 14.6 % (19-41); Mean Corp Hgb Conc 33.3 g/dL (32-36); Mean Corpuscular Hgb 30.1 pg (27.0-32.0); Mean Corpuscular Volume 90.2 fL (81-99); Mean Platelet Vol. 13.1 fl (6.2-12.0); NRBC Flagged by Analyzer 0 % (0-5); Neutrophil # 5.84 X10^3/uL (2.7-7.7); Neutrophil % 71.7 % (47-70); Platelet Count 105 K/mm3 (150-450); RBC Distribution Width CV 13.6 % (11.6-14.6); RBC Distribution Width SD 44.9 fl (35.1-43.9); Red Blood Count 3.99 M/mm3 (4.2-5.4); White Blood Count 8.2 K/mm3 (4.4-11.0)
--- NOTE | 2022-01-05 08:32 | NURSING ---
This nursing officer reviewed the documentation completed by Amanda Bauer student nurse.
[2022-01-05] MEDS: Penicillin G 3,000,000 Units 50 ML 100 UNITS IV (12:03)
[2022-01-05] MEDS: Lactated Ringers 500 ML 999 ML IV ×2 (13:12→14:58)
[2022-01-05] MEDS: fentaNYL-bupivacaine (epidural) 100 ML BAG EPIDURAL (13:46)
[2022-01-05] MEDS: Terbutaline 1 MG/ML Vial 0.25 MG SC (15:30)
[2022-01-05] MEDS: Cefazolin 2 GM in 0.9% Normal Saline 100 ML IV (15:40)
--- NOTE | 2022-01-05 15:43 | PLAC_PTH ---
PATIENT: FOX DURAN LOC: WP U#:[id number] AGE/SX: 36/F ROOM: 008 RE01/05/[address]: Dr. Maria Isabel Franklin DO : 1985 BED: 1 DIS: 01/06/2022 SPEC #: [id number] RECD: 01/05/22 22:20 STATUS: CARLOS SARAHI #: [id number] MIKEL: 01/05/22 15:[address]: Maria Isabel Franklin DEPT: SURGICAL PATHOLOGY RECD BY: Daniella Montoya ENTERED: 01/06/22 09:43 SP TYPE: PLACENTA OTHR DR: Elizabeth Bolden, PRODUCT SALES ENGINEER-Sam Tissues: Placenta, NOS Procedures: Surgery Specimen Level V HEADER OPERATION: Primary section PRE-OP DIAGNOSIS: Induction TISSUE SUBMITTED: Placenta MICROSCOPIC DIAGNOSIS Placenta: Placental disc - third trimester placenta (483 gm). - A few fibrinous plaques surface. Membranes ? minimal acute inflammation. Umbilical cord - three blood vessels and minimal acute inflammation. SJ:talya 01/10/2022 MICROSCOPIC DESCRIPTION Slides are reviewed. GROSS DESCRIPTION SPECIMEN: PLACENTA / CLINICAL INFORMATION: A. Weight: 3.395 kg B. Gestational Age: 40 weeks C. Sex: female PLACENTAL WEIGHT (POST FIXATION): 483 gm PLACENTAL DIMENSIONS: 15 x 14 x 4 cm PLACENTAL SHAPE: Usual ovoid PLACENTAL WEIGHT FOR GESTATIONAL AGE: Within 10-99th percentile MEMBRANES - Present A. Insertion: Marginal B. Site of rupture from edge: The membranes are fragmented and detached from body of the placenta and distance of rupture cannot be assessed. C. Color of membrane: Ace-waldron D. Abnormalities: None UMBILICAL CORD - Present A. Color: Ace-waldron B. Insertion: Paracentral C. Length: 13 cm. Also present in the container is a detached segment of umbilical cord measuring 28 cm in length. D. Diameter: 1 cm E. Number of vessels: Three F. Abnormalities: None PLACENTAL DISC - Present A. Color of surface: Ace-waldron B. surface abnormalities: A few plaques are noted. C. Maternal cotyledons: Intact with minimal tears D. Attached retro placental clot: No clot E. Cut surface: Dark red and spongy F. Lesions: None G. Separate clot: Also present in the container are detached blood clots weighing in aggregate 38 gm and measuring 8 x 8 x 3 cm. SECTIONS SUBMITTED: 1. Membrane roll 2. Cord, maternal end 3. Cord, end 4. Placental disc, and maternal surfaces 5. Placental disc, and maternal surfaces 6. Placental disc, and maternal surfaces CAROILNA:talya 01/09/2022 TC:5 CPT: 15606
--- NOTE | 2022-01-05 16:15 | EX.PCM.OBRPT ---
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 Simon catheter was already in place and draining. The heart rate was in the 90's and recovered to the 150's. The patient was placed in the dorsal supine position with leftward tilt. Patient was prepped and draped with a betadine splash. A Pfannenstiel skin incision was made with the scalpel and carried through to the underlying layer of fascia with the scalpel. Fascia was nicked in the midline and the incision extended laterally. The rectus bellies were dissected off superiorly and inferiorly with out complication both sharply and bluntly. The peritoneum was entered digitally. The incision was stretched and a low transverse uterine incision was made with the scalpel. The water bag was ruptured and clot and a marked amount of blood returned. The infant's head was delivered atraumatically and a nuchal cord was reduced easily, followed by the anterior and posterior shoulders without complication the rest of the infant delivered. The cord was clamped and cut and the infant was handed off to awaiting nurse. The placenta was delivered manually immediately following and was noted to be intact and have a three-vessel cord. The uterus was cleared of all clots and debris, and the incision was closed in a double layer closure using #1 vicryl and #1 Monocryl. The ovaries and fallopian tubes were noted to be within normal limits. The gutters were cleared of all clots and debris. The peritoneum was closed with 3-0 Monocryl in a running fashion. Gloves were changed prior to fascial closure. Fascia was closed with 0 PDS in a running fashion. The skin was closed with 3-0 Monocryl in a subcuticular fashion. Mepilex dressing was applied without complication. Patient was taken to recovery in stable condition. It was discussed with the patient that based on the clinical information obtained during this encounter, combined with her history, at this time I would recommend or section based on the patient's choice for future deliveries if further pregnancies are desired. Presentation: Positive for Vertex Amniotic Membrane Rupture Type: Artificial Amniotic Fluid Description: Clear (initially during labor membranes were clear and during section was noted to be bloody ) Placental Delivery Description: Manual Removal Placenta Disposition: Sent to Pathology Cord Vessel Description: 3 Vessels Cord Entanglement: Around neck x 1, loose Nuchal Cord Compression: Without compression A Gender: Female (1 minute): 8 (5 minute): 9 Delayed Cord Clamping: No Complications Risks of Surgery Discussed w/Patient: Bleeding, Anesthesia Risks, Infection and Need for Future C-Sections Complications: none Multi Select Codes Urinary/Genital Urinary/Genital CPT Codes: 71531 Delivery [facility]
--- NOTE | 2022-01-05 16:22 | DCINST_ITS ---
Discharge Instructions Diet Discharge Diet: No restrictions Activity Discharge Activity: May Not Drive (for 2 weeks or while taking narcotic pain medications.), May Shower and May Take a Tub Bath (in 7 days.) May resume sexual activity in: 4-6 weeks Weight Bearing Status: Full weight bearing Lifting Restrictions: 20 pounds Dressing / Incision Call your doctor if your incision/area has: Continuous Slow Oozing, Sudden Increased Bleeding, Increased Pain/ Swelling, Increased Redness and Foul Smelling Discharge Call your doctor if you observe: Fever of 101 or Higher and Using more than 1 pad per hour Suture Line Care: Avoid Pulling/Pushing and Avoid Pinching/Bending Cleanse incision/area with: Soap & Water and Keep Dressing Clean & Dry Follow Up Care Please Follow Up With: Maria Isabel Franklin DO When: Call [phone] to make an appointment for an incision check in 1-2 weeks. Test Results: Test results from this visit will be discussed in further detail at your follow-up appointment, if applicable. Discharge Plan Admission Admit Date/Time: 01/05/22 07:05 Primary Reason for Your Visit: section Attending Provider: Maria Isabel Franklin Primary Care Provider: Elizabeth Bolden NP Discharge Orders/Prescriptions Prescriptions: New ibuprofen 800 mg tablet 800 mg PO Q8H PRN (Reason: pain) 7 Days Qty: 30 RF: 0 oxycodone-acetaminophen [oxycodone-acetaminophen] 1 TABLET tablet 1 - 2 tab PO Q4H PRN PRN (Reason: Pain) 7 Days Qty: 30 RF: 0 No Action vit,[id number] 1 TABLET tablet 1 tab PO DAILY RF: 0 Referrals / Follow Up: Elizabeth Bolden NP, COLORER MACHINE-C [Primary Care Provider] - Disposition Disposition (needs filled in before D/C Order can be placed): Home, Self Care
[2022-01-05] MEDS: Oxytocin 30 units/NS 500 ml 30 UNITS/500 ML IV.SOLN 167 UNITS IV (16:40)
[2022-01-05] MEDS: Acetaminophen 500 MG Tablet 1000 MG PO (18:14)
[2022-01-05] MEDS: Lactated Ringers 1,000 ML 100 ML IV (20:01)
[2022-01-05] MEDS: Ondansetron 4 MG/2 ML Vial IV (21:09)
[2022-01-05 21:18] LABS: Hematocrit 31.4 % (37-47); Hemoglobin 10.4 g/dL (12.0-15.0); Mean Corp Hgb Conc 33.1 g/dL (32-36); Mean Corpuscular Hgb 29.7 pg (27.0-32.0); Mean Corpuscular Volume 89.7 fL (81-99); Mean Platelet Vol. 12.7 fl (6.2-12.0); Platelet Count 101 K/mm3 (150-450); RBC Distribution Width CV 13.7 % (11.6-14.6); White Blood Count 11.7 K/mm3 (4.4-11.0)
[2022-01-05] MEDS: proCHLORPERazine 10 MG/2 ML Vial IV (22:04)
[2022-01-05] MEDS: Ketorolac 30 MG/ML Syringe IV (22:05)
[2022-01-05 22:20] LABS: Pathology Specimen OB SEE PATHOLOGY REPORT
--- NOTE | 2022-01-05 23:30 | NURSING ---
Anesthesia ordered for epidural catheter to be removed after this RN reported the platelets of 101 - pt too nauseous to sit up without vomiting at 2230 - removed epidural catheter at 2330 - tip intact.
[2022-01-06] MEDS: Acetaminophen 500 MG Tablet 1000 MG PO ×4 (00:36→17:40)
[2022-01-06 00:39] VITALS: BP 112/62; PULSE 73; RESP 16; TEMP 36.3; O2SAT 98
[2022-01-06 02:35] VITALS: PULSE 72; RESP 16; O2SAT 98
[2022-01-06 03:19] VITALS: BP 114/72; PULSE 68; RESP 16; TEMP 36.5; O2SAT 99
[2022-01-06] MEDS: Ketorolac 30 MG/ML Syringe IV ×3 (04:52→16:15)
[2022-01-06] MEDS: 0.9% Saline Lock 10 ML Syringe IV ×2 (04:52→10:37)
[2022-01-06 05:53] LABS: Hematocrit 33.6 % (37-47); Hemoglobin 11.4 g/dL (12.0-15.0); Mean Corp Hgb Conc 33.9 g/dL (32-36); Mean Corpuscular Hgb 30.6 pg (27.0-32.0); Mean Corpuscular Volume 90.1 fL (81-99); Mean Platelet Vol. 12.6 fl (6.2-12.0); Platelet Count 121 K/mm3 (150-450); RBC Distribution Width CV 13.9 % (11.6-14.6); RBC Distribution Width SD 45.1 fl (35.1-43.9); Red Blood Count 3.73 M/mm3 (4.2-5.4); White Blood Count 14.4 K/mm3 (4.4-11.0)
[2022-01-06] MEDS: Senna/Docusate Sodium 1 Tablet PO (10:38)
[2022-01-06 10:53] VITALS: BP 100/51; PULSE 72; RESP 18; TEMP 36.5
[2022-01-06 12:50] VITALS: BP 112/63; PULSE 75; RESP 16; TEMP 36.3
[2022-01-06 16:24] VITALS: BP 104/50; PULSE 70; RESP 16; TEMP 36.8; O2SAT 99
--- NOTE | 2022-01-06 16:39 | PCM.PN.OB ---
Subjective Subjective Patient doing well without complaints. Tolerating PO. Ambulating and voiding without difficulty. Feeding well. Denies chest pain, shortness of breath, calf pain/swelling, fevers, chills, lightheadedness. Objective Data Objective Data Vital Signs: Vital Signs Temp Pulse Resp BP Pulse Ox 98.2 F 70 16 104/50 L 99 01/06/22 16:24 01/06/22 16:24 01/06/22 16:24 01/06/22 16:24 01/06/22 16:24 Oxygen Delivery Method Room Air Weight: 173 lb 1.006 oz Body Mass Index (BMI) 27.1 Intake & Output: Intake and Output for Last 24 Hours 01/04/22 01/05/22 01/06/22 23:59 23:59 23:59 Intake Total 2768.42 / 2768.42 648.33 / 648.33 Output Total 2400 / 2400 1750 / 1750 Balance 368.42 / 368.42 -1101.67 / -1101.67 Lab / Micro Data Result Diagrams: 01/06/22 05:48 Labs: Laboratory Results - last 24 hr 01/05/22 21:05: WBC 11.7 H, RBC 3.50 L, Hgb 10.4 L, Hct 31.4 L, MCV 89.7, MCH 29.7, MCHC 33.1, RDW Std Deviation 45.0 H, RDW Coeff of Lisa 13.7, Plt Count 101 L, MPV 12.7 H 01/06/22 05:48: WBC 14.4 H, RBC 3.73 L, Hgb 11.4 L, Hct 33.6 L, MCV 90.1, MCH 30.6, MCHC 33.9, RDW Std Deviation 45.1 H, RDW Coeff of Lisa 13.9, Plt Count 121 L, MPV 12.6 H ROS Constitutional Constitutional: Reports systems reviewed and no addt'l complaints, except as documented Gastrointestinal Gastrointestinal: Denies bloating, constipation, cramping, diarrhea, nausea or vomiting Genitourinary Genitourinary: Reports other Details: Denies vaginal odor, vaginal bleeding, or vaginal discharge ; Denies difficulty urinating or flank pain Physical Exam Const alert, oriented x3 and no apparent distress General Appearance: cooperative and comfortable Resp normal respiratory effort Cardio regular rate GI normal to inspection, nondistended, normoactive bowel sounds Palpation: soft Rectal Exam: other Other Details: non-tender. Incision is clean, dry, and intact. Assessment & Plan (1) Status post primary low transverse section: (2) Placental abruption: (3) Normal Pap smear: COMMENT: needs repeat PP due to not enough cells to run HPV. (4) : QUALIFIERS: Weeks of gestation: 38 weeks Qualified Code(s): Z3A.38 - 38 weeks gestation of COMMENT: anatomy nl, declines afp, genetic, and carrier screen. COVID neg (5) Supervision of high risk , antepartum: COMMENT: PRR FRANKLIN 01/05/22 girl Martha PC: Dom. Spouse:Alejo (6) AMA (advanced maternal age) multigravida 35+: QUALIFIERS: Trimester: second trimester Qualified Code(s): O09.522 - Supervision of elderly multigravida, second trimester COMMENT: declines NIPT. plan 36 week growth US, 12/13 nl growth US. plan IOL 40 weeks (7) Short interval between pregnancies affecting , antepartum: COMMENT: delivered Dom 12/2019 (8) Positive GBS test: COMMENT: treat in labor PLAN: s/p PPD # 1 1. routine post delivery care 2. breast feeding- support given 3. rh positive 4. rubella immune
== END 2022-01-06 19:55 | disposition home or self-care (01) | DRG 788 ==
PROVIDERS: Admitting Provider Obstetrics & Gynecology; PCP Nurse Practitioner Family; Visit Provider Obstetrics & Gynecology
DX: O45.93 Premature separation of placenta, unspecified, third trimester (principal); O69.81X0 Labor and delivery complicated by cord around neck, without compression, not applicable or unspecified; O99.824 Streptococcus B carrier state complicating childbirth; Z37.0 Single live birth; Z3A.40 40 weeks gestation of pregnancy
CPT/HCPCS: 59025; 59050; 85025; 85027; 86850; 86900; 86901; 88307; 99218; 99251; J7120; A4216; G0378; G0463; J2405

== ENCOUNTER → 2023-02-02 | Outpatient (CLI) | payer OTHER, SELFPAY ==
[2023-02-02 12:55] LABS: hCG Titer Quant., Serum < 1 mIU/mL (1-3)
== END | disposition home or self-care (01) ==
PROVIDERS: PCP Nurse Practitioner Family; Visit Provider Obstetrics & Gynecology
DX: N91.2 Amenorrhea, unspecified (principal)
CPT/HCPCS: 36415; 84702

== ENCOUNTER → 2023-03-01 | Outpatient (CLI) | payer OTHER, SELFPAY ==
[2023-03-01 10:33] LABS: Estradiol 175.6 pg/mL; Follicle Stimulating Hormone 2.9 mIU/mL; Prolactin 8.6 ng/mL
[2023-03-01 10:38] LABS: hCG Titer Quant., Serum < 1 mIU/mL (1-3)
[2023-03-05 11:12] LABS: Testosterone Free 1.3 pg/mL (0.0-4.2)
== END | disposition home or self-care (01) ==
PROVIDERS: PCP Nurse Practitioner Family; Referring Provider Obstetrics & Gynecology; Visit Provider Obstetrics & Gynecology
DX: N91.4 Secondary oligomenorrhea (principal)
CPT/HCPCS: 36415; 82670; 83001; 84146; 84402; 84702

== ENCOUNTER → 2023-03-08 | Outpatient (CLI) | payer OTHER, SELFPAY ==
--- NOTE | 2023-03-08 08:31 | BI_ITS ---
MAMMOGRAPHY - BILATERAL SCREENING 3-D TOMOSYNTHESIS REASON FOR EXAM: Female, 37 years old. Routine screening PERTINENT HISTORY: No significant family history. TECHNIQUE: 2-D mammograms and 3-D Tomosynthesis of the breast (s) were performed. CAD was performed. COMPARISON: None. Baseline examination. FINDINGS: The breast composition is extremely dense fibroglandular tissue. Scattered benign calcifications are seen. No dense spiculated masses or suspicious microcalcifications are identified. No architectural distortion is identified. There is no skin thickening or retraction. BI/SCRN MAMM (CAD)W/CHARLIE BILAT IMPRESSION: No mammographic signs of malignancy. Routine yearly mammograms recommended. ASSESSMENT CATEGORY: BIRADS Category 2: Benign. A letter regarding these results will be sent to the patient by the facility within 30 days. FOLLOW UP RECOMMENDATION: Yearly follow up mammogram recommended. (A) Approximately 10% of breast cancers are not detected by mammography. A normal mammogram should not delay biopsy of a clinically suspicious abnormality. Electronically Signed: Madhu Dela Cruz MD at 9:40 EDT ,
== END | disposition home or self-care (01) ==
PROVIDERS: PCP Nurse Practitioner Family; Referring Provider Obstetrics & Gynecology; Visit Provider Obstetrics & Gynecology
DX: Z12.31 Encounter for screening mammogram for malignant neoplasm of breast (principal)
CPT/HCPCS: 77063; 77067

== ENCOUNTER → 2023-05-22 | Outpatient (CLI) | payer OTHER, SELFPAY ==
[2023-05-22 17:50] LABS: hCG Titer Quant., Serum 4825 mIU/mL (1-3)
== END | disposition home or self-care (01) ==
PROVIDERS: PCP Nurse Practitioner Family; Referring Provider Obstetrics & Gynecology; Visit Provider Obstetrics & Gynecology
DX: O03.9 Complete or unspecified spontaneous abortion without complication (principal)
CPT/HCPCS: 36415; 84702

== ENCOUNTER → 2023-06-05 | Outpatient (CLI) | payer OTHER, SELFPAY ==
[2023-06-05 13:55] LABS: hCG Titer Quant., Serum 49 mIU/mL (1-3)
[2023-06-08 07:08] LABS: Anti-Cardiolipin Ab, IgA, Qn < 9 APL U/mL (0-11); Anti-Cardiolipin Ab, IgG, Qn < 9 GPL U/mL (0-14); Anti-Cardiolipin Ab, IgM, Qn < 9 MPL U/mL (0-12); Beta-2-Glycoprotein I IgA <9 (0-25); Beta-2-Glycoprotein I IgG <9 (0-20); Beta-2-Glycoprotein I IgM <9 (0-32); Dilute Prothrombin Time (dPT) 42.8 sec (0.0-47.6); Dilute Russell Viper Venom 35.9 sec (0.0-47.0); Interpretation Comment: (.); PTT-LA 34.8 sec (0.0-43.5); Thrombin Time 19.8 sec (0.0-23.0)
== END | disposition home or self-care (01) ==
LOC: LAB 13:12
PROVIDERS: PCP Nurse Practitioner Family; Referring Provider Obstetrics & Gynecology; Visit Provider Obstetrics & Gynecology
DX: O03.9 Complete or unspecified spontaneous abortion without complication (principal); N96 Recurrent pregnancy loss; O99.891 Other specified diseases and conditions complicating pregnancy
CPT/HCPCS: 36415; 84702; 86146; 86147

== ENCOUNTER → 2023-08-14 | Outpatient (CLI) | payer OTHER, SELFPAY ==
[2023-08-14 10:51] LABS: hCG Titer Quant., Serum 95 mIU/mL (1-3)
== END | disposition home or self-care (01) ==
PROVIDERS: PCP Nurse Practitioner Family; Referring Provider Obstetrics & Gynecology; Visit Provider Obstetrics & Gynecology
DX: O03.9 Complete or unspecified spontaneous abortion without complication (principal)
CPT/HCPCS: 36415; 84702

== ENCOUNTER → 2023-08-16 | Outpatient (CLI) | payer OTHER, SELFPAY ==
[2023-08-16 10:32] LABS: hCG Titer Quant., Serum 254 mIU/mL (1-3)
== END | disposition home or self-care (01) ==
PROVIDERS: PCP Nurse Practitioner Family; Referring Provider Obstetrics & Gynecology; Visit Provider Obstetrics & Gynecology
DX: N91.2 Amenorrhea, unspecified (principal)
CPT/HCPCS: 36415; 84702

== ENCOUNTER → 2023-08-29 | Outpatient (CLI) | payer OTHER, SELFPAY ==
[2023-09-02 11:07] LABS: Chlamydia By Nucleic Acid AMP Negative (Negative); Gonococcus By Nucleic Acid AMP Negative (Negative)
== END | disposition home or self-care (01) ==
LOC: LABSPEC 13:49
PROVIDERS: PCP Nurse Practitioner Family; Referring Provider Obstetrics & Gynecology; Visit Provider Obstetrics & Gynecology
DX: O09.529 Supervision of elderly multigravida, unspecified trimester (principal); Z3A.00 Weeks of gestation of pregnancy not specified
CPT/HCPCS: 87491; 87591

== ENCOUNTER → 2023-09-17 | Outpatient (CLI) | payer OTHER, SELFPAY | END | disposition home or self-care (01) | LOC: LABSPEC 15:27 | PROVIDERS: PCP Nurse Practitioner Family; Referring Provider Obstetrics & Gynecology; Visit Provider Obstetrics & Gynecology | DX: O09.529 Supervision of elderly multigravida, unspecified trimester (principal); Z3A.00 Weeks of gestation of pregnancy not specified | CPT/HCPCS: 87077; 87086; 87088; 87186 ==

== ENCOUNTER → 2023-11-21 | Outpatient (CLI) | payer OTHER, SELFPAY ==
[2023-11-21 10:34] LABS: Absolute Lymphocyte Count 1.05 X10^3/uL (0.83-4.51); Absolute Neutrophil Count 6.5 X10^3/uL (2.0-7.7); Basophil# 0.07 X10^3/uL; Basophil% 0.8 % (0-1); Eosinophil# 0.14 X10^3/uL; Eosinophils% 1.7 % (0-5); Hematocrit 38.8 % (37-47); Hemoglobin 12.7 g/dL (12.0-15.0); Lymphocyte # 1.05 X10^3/ul (0.83-4.51); Lymphocyte % 12.4 % (19-41); Mean Corp Hgb Conc 32.7 g/dL (32-36); Mean Corpuscular Hgb 29.7 pg (27.0-32.0); Mean Corpuscular Volume 90.7 fL (81-99); Mean Platelet Vol. 11.6 fl (6.2-12.0); Monocyte# 0.71 X10^3/uL; Monocyte% 8.4 % (0-10); NRBC Flagged by Analyzer 0 % (0-5); Neutrophil # 6.45 X10^3/uL (2.7-7.7); Neutrophil % 76.1 % (47-70); Platelet Count 134 K/mm3 (150-450); RBC Distribution Width CV 14.7 % (11.6-14.6); RBC Distribution Width SD 48.3 fl (35.1-43.9); Red Blood Count 4.28 M/mm3 (4.2-5.4); White Blood Count 8.5 K/mm3 (4.4-11.0)
[2023-11-21 11:53] LABS: HIV - WCH Non-Reactive (Nonreactive); Hepatitis B Surface Antigen Non-Reactive (Nonreactive); Hepatitis C Antibody Non-Reactive (Nonreactive); Rubella IgG Reactive (Nonreactive); Syphilis Antibodies Non-reactive
== END | disposition home or self-care (01) ==
LOC: LAB 09:42
PROVIDERS: Referring Provider Obstetrics & Gynecology; Visit Provider Obstetrics & Gynecology
DX: O09.529 Supervision of elderly multigravida, unspecified trimester (principal); Z3A.00 Weeks of gestation of pregnancy not specified
CPT/HCPCS: 36415; 85025; 86703; 86762; 86780; 86803; 86850; 86900; 86901; 87340

== ENCOUNTER → 2023-12-24 | Outpatient (CLI) | payer OTHER, SELFPAY ==
--- OUTSIDE RECORDS SUMMARY | 2023-12-24 13:51 | XMS RPT_ITS | CCD ---
Author Name Unknown Address [address] [place] [address] Organization [facility] Care Team Providers Care Manager Business Operations Name Role Phone TorresKyen Unavailable [phone] BRIAN [place] LONGROIA Unavailable Unavailable LUIS F HAYDEN Unavailable Unavaila ble [place] TORRESEN Unavailable Unavailable LUIS F HAYDEN Unavailable Unavaila ble TORRESRENATOER SWATI Unavailable Unavailable LUIS F HAYEDN Unavailable Unavaila linda ROSASERKY SWATI Unavailable Unavailable LUIS F HAYDEN Unavailable Unavaila ble TORRESRENATOER SWATI Unavailable Unavailable LUIS F HAYDEN Unavailable Unavaila ble TORRESRENATOER SWATI Unavailable Unavailable Free, Text Entry Unavailable Unavailable Reina Roblero Unavailable UnavailMelia Dudley Unavailable Unavailable Pending, Provider Primary Care Unavailable MAGALY ROBLERO Attending Unavailable Pending, Provider Primary Care Unavailable NATHAN, DO MELIA AQUINO Attending Unavailab BERNARDA Vilchis Primary Care UnavailBERNARDA Melissa Referring UnavailREINA Mcintyre Attending Unavailable BERNARDA LOWERY Primary Care UnavailREINA Mcintyre Attending Unavailable REFERRED, SELF Referring Unavailable BERNARDA LOWEYR Primary Care UnavailBERNARDA Melissa Referring Unavailabl jazmín TORRES, EFE F Attending Unavailable BERNARDA LOWERY Primary Care UnavailKIMBERLY Wong Referring Unavailable BRIAN, EFE F Attending Unavailable Allergies Allergy Classification Reported Allergen(s) Allergy Type Date of Onset Reaction(s) Facility (4 sources) amoxicillin; Translations: [AMOXICILLIN] Drug Allergy 09-06-2017 Unknown [facility] Work Phone: Medications Current Medications Medication Drug Class(es) Dates Sig (Normalized) Sig (Original) Therapeutic Multivitamin Tablet (1 source) take 1 tablet by mouth once daily therapeutic multivitamin (THERAGRAN) tablet Take 1 tablet by mouth daily. Active Completed/Discontinued Medications Medication Drug Class(es) Dates Sig (Normalized) Sig (Original) clindamycin 300 mg oral capsule (2 sources) Lincosamide Antibacterial Start: 07-17-2022 End: 07-26-2022 take 1 capsule by mouth every six hours clindamycin 300 mg oral capsule ; 1 cap(s) orally every 6 hours x 10 days Quantity: 40 Refills: 0 Ordered: 17-Jul-2022 Reina Roblero Start: 17-Jul-2022 End: 26-Jul-2022 Generic Substitution Allowed Comments: Finish all this medication unless otherwise directed by prescriber.Medicat ion should be taken with plenty of water. Problems Active Problems Problem Classification Problem Date Documented Date Episodic/Chronic Abdominal pain (3 sources) Lower abdominal pain, unspecified; Translations: [Unspecified abdominal pain] Onset: 07-17-2022 Episodic Allergic reactions (1 source) Allergy status to penicillin; Translations: [Allergy status to penicillin] Onset: 05-20-2023 Episodic Cardiac dysrhythmias (4 sources) Paroxysmal supraventricular tachycardia; Translations: [Cardiac arrhythmia, unspecified] Onset: 07-17-2017 09-06-2017 Chronic Heart valve disorders (3 sources) Tricuspid incompetence, non-rheumatic ; Translations: [Rheumatic tricuspid insufficiency] Onset: 07-17-2017 Chronic Hemorrhage during ; abruptio placenta; placenta previa (3 sources) Indeterminate antepartum hemorrhage; Translations: [Unspecified antepartum hemorrhage, antepartum condition or complication] Onset: 05-20-2023 05-20-2023 Episodic Other complications of (2 sources) Other specified related conditions, first trimester; Translations: [Oth related conditions, first trimester] Onset: 05-20-2023 Episodic Pulmonary heart disease (4 sources) Pulmonary hypertension; Translations: [Other secondary pulmonary hypertension] Onset: 07-17-2017 09-06-2017 Chronic Residual codes; unclassified (1 source) 10 weeks gestation of ; Translations: [10 weeks gestation of ] Onset: 05-20-2023 Episodic Skin and subcutaneous tissue infections (2 sources) Abscess; Translations: [Cellulitis and abscess of unspecified sites] 07-17-2022 Episodic Unclassified (2 sources) PAIN IN LOWER PRIVATE AREA 07-17-2022 Past or Other Problems Problem Classification Problem Date Documented Date Episodic/Chronic Inflammatory diseases of female pelvic organs (1 source) Acute vaginitis; Translations: [Acute vaginitis] Onset: 07-17-2022 Episodic Other female genital disorders (1 source) Other specified noninflammatory disorders of vagina; Translations: [Other specified noninflammatory disorders of vagina] Onset: 07-17-2022 Episodic Results Test Name Value Interpretation Reference Range Facil ity Vital Signs Date Time Vital Sign Value Performing Clinician Facility 05-20-2023 02:56-0400 Diastolic blood pressure 68 mm[Hg] Text Entry Free [facility] 05-20-2023 02:56-0400 Heart rate 76 /min Text Entry Free [facility] 05-20-2023 02:56-0400 Respiratory rate 18 /min Text Entry Free [facility] 05-20-2023 02:56-0400 SaO2% (BldA) [Mass fraction] 100 % Text Entry Free [facility] 05-20-2023 02:56-0400 Systolic blood pressure 111 mm[Hg] Text Entry Free [facility] 07-17-2022 11:33-0400 Body temperature 98.24 [degF] Text Entry Free [facility] 07-17-2022 11:33-0400 Body weight 64 kg Text Entry Free [facility] 07-17-2022 11:33-0400 Diastolic blood pressure 74 mm[Hg] Text Entry Free [facility] 07-17-2022 11:33-0400 Heart rate 76 /min Text Entry Free [facility] 07-17-2022 11:33-0400 Respiratory rate 16 /min Text Entry Free [facility] 07-17-2022 11:33-0400 SaO2% (BldA) [Mass fraction] 98 % Text Entry Free [facility] 07-17-2022 11:33-0400 Systolic blood pressure 118 mm[Hg] Text Entry Free [facility] 09-06-2017 11:27-0400 BMI (Body Mass Index) 21.47 kg/m2 Luis F Hayden [facility] Work Phone: 09-06-2017 11:27-0400 BP Diastolic 66 mm[Hg] Luis F Hayden [facility] Work Phone: 09-06-2017 11:27-0400 BP Systolic 102 mm[Hg] Luis F Hayden [facility] Work Phone: 09-06-2017 11:27-0400 Height 167.6 cm Luis F Hayden [facility] Work Phone: 09-06-2017 11:27-0400 Pulse (Heart Rate) 80 /min Luis F Hayden [facility] Work Phone: 09-06-2017 11:27-0400 Weight 60.33 kg Luis F Hayden [facility] Work Phone: Encounters Encounter Date Encounter Type Care Provider Facility Start: 11-30-2023 End: 11-30-2023 ambulatory [facility] Start: 11-29-2023 End: 11-29-2023 ambulatory [facility] Start: 06-14-2023 End: 06-14-2023 ambulatory [facility] Start: 05-19-2023 End: 05-20-2023 Emergency department patient visit Melia Bales [facility] Emergency 04 Start: 07-17-2022 End: 07-17-2022 Emergency department patient visit Reina Osbaldo [facility] Emergency 03 Start: 12-31-2018 Patient encounter procedure Facility:[id number] Start: 12-24-2018 Patient encounter procedure Facility:[id number] Start: 12-20-2018 Patient encounter procedure Facility:[id number] Start: 07-26-2018 Patient encounter procedure Facility:[id number] Start: 09-06-2017 Ambulatory LUIS F HAYDEN [facility] Ambulatory Start: 09-06-2017 Office outpatient visit 25 minutes Luis F Hayden Work Phone: [facility] Start: 08-01-2017 Ambulatory LUIS F HAYDEN [facility] Ambulatory Start: 07-18-2017 Ambulatory LUIS F HAYDEN [facility] Ambulatory Start: 07-17-2017 End: 07-21-2017 Ambulatory [place] TORRES [facility] Ambulato ry Plan of Treatment Date Care Activity Detail Author Start: 09-06-2018 End: 09-07-2018 Echocardiogram complete Echocardiogram complete Routine Paroxysmal SVT (supraventricular tachycardia) (HCC) Pulmonary hypertension Expected: 09/06/2018 (Approximate), Expires: 09/07/2018 [facility] Work Phone: Start: 07-27-2017 Influenza vaccination SEQUENTIAL INFLUENZA VACCINE (#1) [facility] Work Phone: Start: 1985 Screening for malignant neoplasm of cervix PAP SMEAR [facility] Work Phone: Start: 1985 Tetanus vaccination TETANUS EVERY 10 YR [facility] Work Phone: Payers Date Payer Category Payer Unknown [id number] 2. [id number] 1983 Unknown [id number] 2. [id number] 1983 Unknown [id number] 1983 Unknown [id number] 1983 Unknown [id number] 1983 Unknown [id number] 2.16.8 [id number] 1983 Unknown [id number] 2.16.8 [id number] 1983 Unknown [id number] 2.16 [id number] 1983 Unknown [id number] 2. [id number] 1983 Unknown [id number] 2. [id number] 1983 Unknown [id number] 2.16. [id number] Unknown [id number] Unknown Unknown [id number] Unknown [id number] Social History Date Type Detail Facility Start: 09-06-2017 Tobacco smoking status NHIS Never smoker [facility] Work Phone: Sex Assigned At Not on file [facility] Work Phone: Tobacco smoking consumption unknown [facility] Assessments Diagnosis Pulmonary hypertension - Willa zechariah Other chronic pulmonary heart diseases Paroxysmal SVT (supraventric ular tachycardia) (HCC) Non-rheumatic tricuspid valv e insufficiency Summary Purpose Family History No Family History Records FoundNo Family History Records FoundNo Family History Records FoundNo Family History Records FoundNo Family History Records FoundNo Family History Records Found Advance Directives No Advanced Directives Records FoundNo Advanced Directives Records FoundNo Advanced Directives Records FoundNo Advanced Directives Records FoundNo Advanced Directives Records FoundNo Advanced Directives Records Found Reason for Referral * First trimester vaginal bleedingFirst trimester vaginal bleeding Additional Source Comments INFORMATION SOURCE (unrecogn ized section and content) DATE CREATED AUTHOR AUTHOR'S ORGANIZ ATION 08/07/2018 [facility] DATE CREATED AUTHOR AUTHOR'S ORGANIZ ATION 01/13/2019 [facility] DATE CREATED AUTHOR AUTHOR'S ORGANIZ ATION 07/16/2019 [facility] DATE CREATED AUTHOR AUTHOR'S ORGANIZ ATION 05/23/2023 [facility] DATE CREATED AUTHOR AUTHOR'S ORGANIZ ATION 12/05/2023 [facility] <item><item> Privacy Markings (unrecogniz ed section and content) Section Author: Nadia Pruett PROHIBITION ON REDISCLOSURE OF CONFIDENTIAL INFORMATION This notice accompanies a disclosure of information concerning a client made to you with the consent of such client. Section Author: Nadia Pruett PROHIBITION ON REDISCLOSURE OF CONFIDENTIAL INFORMATION This notice accompanies a disclosure of information concerning a client made to you with the consent of such client. FOR RECORDS PERTAINING TO PATIENTS WHO ARE OR HAVE BEEN ENROLLED IN A CHEMICAL DEPENDENCY/SUBSTANCEABUSE PROGRAM, SOME INFORMATION MAY BE OMITTED. This clinical summary was aggregated from multiple sources. Caution should be exercised in using it in the provision of clinical care. This summary normalizes information from multiple sources, and as a consequence, information in this document may materially change the coding, format and clinical context of patient data. In addition, data may be omitted in some cases. CLINICAL DECISIONS SHOULD BE BASED ON THE PRIMARY CLINICAL RECORDS. [facility] [facility]. provides no warranty or guarantee of the accuracy or completeness of information in this document.
[2023-12-24 14:21] LABS: NATERA MAILED SPECIMEN
== END | disposition home or self-care (01) ==
LOC: LAB 13:18
PROVIDERS: PCP Family Medicine; Referring Provider Obstetrics & Gynecology; Visit Provider Obstetrics & Gynecology
DX: Z34.82 Encounter for supervision of other normal pregnancy, second trimester (principal); Z3A.00 Weeks of gestation of pregnancy not specified
CPT/HCPCS: 36415

== ENCOUNTER → 2024-01-18 | Outpatient (CLI) | payer OTHER, SELFPAY ==
[2024-01-18 14:45] LABS: Absolute Lymphocyte Count 0.95 X10^3/uL (0.83-4.51); Absolute Neutrophil Count 9.7 X10^3/uL (2.0-7.7); Basophil# 0.05 X10^3/uL; Basophil% 0.4 % (0-1); Eosinophils% 0.9 % (0-5); Hematocrit 36.2 % (37-47); Hemoglobin 11.8 g/dL (12.0-15.0); Lymphocyte # 0.95 X10^3/ul (0.83-4.51); Lymphocyte % 8.2 % (19-41); Mean Corp Hgb Conc 32.6 g/dL (32-36); Mean Corpuscular Hgb 30.5 pg (27.0-32.0); Mean Corpuscular Volume 93.5 fL (81-99); Mean Platelet Vol. 11.6 fl (6.2-12.0); Monocyte# 0.67 X10^3/uL; Monocyte% 5.8 % (0-10); NRBC Flagged by Analyzer 0 % (0-5); Neutrophil # 9.69 X10^3/uL (2.7-7.7); Neutrophil % 83.8 % (47-70); Platelet Count 144 K/mm3 (150-450); RBC Distribution Width CV 13.7 % (11.6-14.6); RBC Distribution Width SD 46.6 fl (35.1-43.9); Red Blood Count 3.87 M/mm3 (4.2-5.4); White Blood Count 11.6 K/mm3 (4.4-11.0)
[2024-01-18 15:07] LABS: Glucose Challenge Gest 1H 50g 115 mg/dL (70-140)
[2024-01-18 16:07] LABS: HIV - WCH Non-Reactive (Nonreactive); Syphilis Antibodies Non-reactive
== END | disposition home or self-care (01) ==
PROVIDERS: PCP Family Medicine; Referring Provider Obstetrics & Gynecology; Visit Provider Obstetrics & Gynecology
DX: Z34.90 Encounter for supervision of normal pregnancy, unspecified, unspecified trimester (principal); Z3A.00 Weeks of gestation of pregnancy not specified
CPT/HCPCS: 36415; 82950; 85025; 86703; 86780

== ENCOUNTER → 2024-02-27 | Outpatient (CLI) | payer OTHER, SELFPAY ==
--- NOTE | 2024-02-27 12:21 | US_ITS ---
STUDY: SECOND AND THIRD TRIMESTER OBSTETRICAL ULTRASOUND - LIMITED REASON FOR EXAM: Female, 38 years old growth US LMP: 07/18/2023 PRIOR ULTRASOUND: No relevant prior comparison study available TECHNIQUE: Transabdominal TECHNICAL QUALITY: Adequate. FINDINGS: There is a single intrauterine fetus. The fetus is in a cephalic presentation. There is demonstrated cardiac activity with a heart rate of 137 bpm. There is a normal amniotic fluid volume. The largest amniotic fluid pocket measures 6.1 cm. The amniotic fluid index (TRACEY) is 12.2 cm. The placenta is posterior in location and is not low lying. There are Grade 1 placental changes. The cervix measures 4.5 cm cm in length. BIOMETRY: BPD: 8.5 cm: 34 weeks, 3 days HC: 30.7 cm: 34 weeks, 1 days AC: 29.2 cm: 33 weeks, 2 days FL: 6 cm: 31 weeks, 1 days Age by LMP: 32 weeks, 0 days. FRANKLIN by LMP: 04/23/2024. age by current US: 33 weeks, 2 days. FRANKLIN by prior US: 04/14/2024. Estimated weight: 2720 grams, +/- 310 grams, 67 percentile. US/OB Limited With Biometrics IMPRESSION: Single live intrauterine fetus in cephalic presentation with an estimated gestational age of 33 weeks and 2 days. FRANKLIN is 04/14/2024. Electronically Signed: Néstor Gonzalez MD at 16:02 EDT ,
== END | disposition home or self-care (01) ==
PROVIDERS: PCP Family Medicine; Referring Provider Advanced Practice Midwife; Visit Provider Advanced Practice Midwife
DX: O09.529 Supervision of elderly multigravida, unspecified trimester (principal); Z3A.00 Weeks of gestation of pregnancy not specified
CPT/HCPCS: 76816

== ENCOUNTER → 2024-03-27 | Outpatient (CLI) | payer OTHER, SELFPAY ==
--- NOTE | 2024-03-27 12:29 | US_ITS ---
STUDY: SECOND AND THIRD TRIMESTER OBSTETRICAL ULTRASOUND - LIMITED REASON FOR EXAM: Female, 39 years old growth LMP: 07/18/2023 PRIOR ULTRASOUND: Prior study dated: 02/27/2024 TECHNIQUE: Transabdominal TECHNICAL QUALITY: Adequate. FINDINGS: There is a single intrauterine fetus. The fetus is in a cephalic presentation. There is demonstrated cardiac activity with a heart rate of 152 bpm. There is a normal amniotic fluid volume. The largest amniotic fluid pocket measures 3.7 cm. The amniotic fluid index (TRACEY) is 11.2 cm. The placenta is posterior in location and is not low lying. There are Grade 2 placental changes. The cervix is not visualized. BIOMETRY: BPD: 9.2 cm: 37 weeks, 2 days HC: 32.9 cm: 37 weeks, 2 days AC: 34 cm: 37 weeks, 6 days FL: 7.2 cm: 36 weeks, 6 days Age by LMP: 36 weeks, 1 days. FRANKLIN by LMP: 04/23/2024. age by current US: 37 weeks, 1 days. FRANKLIN by current US: 04/16/2024. Estimated weight: 3274 grams, +/- 491 grams, 87 percentile. US/OB Limited With Biometrics IMPRESSION: Single live intrauterine fetus in cephalic presentation with an estimated gestational age of 37 weeks and 1 day. The FRANKLIN is 04/16/2024. Electronically Signed: Néstor Gonzalez MD at 10:38 EDT ,
== END | disposition home or self-care (01) ==
PROVIDERS: PCP Family Medicine; Referring Provider Advanced Practice Midwife; Visit Provider Advanced Practice Midwife
DX: O09.529 Supervision of elderly multigravida, unspecified trimester (principal); Z3A.00 Weeks of gestation of pregnancy not specified
CPT/HCPCS: 76816

== ENCOUNTER 2024-04-16 05:35 | Inpatient (IN) | payer OTHER, SELFPAY ==
--- NOTE | 2024-04-15 23:40 | HP.PCM.OB_ITS ---
HPI - General HPI Narrative FOX DURAN, is a 39 y/o @ 39 weeks who presents to L&D for a repeat section Maternal Data Information FRANKLIN Calculator Estimated Delivery Date Method Current WG Current Estimate 04/23/24 LMP (Certain) 38w 6d Other Estimates 04/19/24 Ultrasound #1 39w 3d PFSH PFS Medical History Complete Heart disease Positive GBS test Home Medications ?Medication ?Instructions ?Recorded ?Last Taken ?Type vits,calcium no.78-iron 1 tab PO DAILY 12/29/19 01/05/22 05:00 History fumarate-folic acid 29 mg-1 mg 1 tab tablet aspirin 81 mg tablet,delayed 81 mg PO DAILY 10/26/23 Unknown History release (Adult Aspirin Regimen) Allergy/AdvReac Type Severity Reaction Status Date / Time amoxicillin Allergy Mild hives Verified 04/11/24 13:44 Family History Father CVA (cerebral vascular accident) Grandmother Colon cancer, Onset Age: 65 maternal Grandfather Cancer Bladder cancer, Onset Age: 80 Maternal Surgical History History of delivery Status post primary low transverse section Social History adopted: No household members: spouse and children number of children: 2 current occupational status: employed 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 pets and animals: Yes (no litter box contact) pets and animals: cat(s) history of recent travel: No sexually active: Yes Smoking Status: Never smoker alcohol intake: current details: Not during substance use type: does not use well-balanced diet: daily or most days caffeine: No eating out: 1-3 times/week during the past year weight has: remained stable what type of physical activity do you participate in: walking and weight training frequency: daily duration: 30-45 minutes/day francheska/tenriism: Islam seatbelt use: always do you feel safe at home: Yes additional social history: Tvmiugq-Pyk-Qqtfvecakpo 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 Date Name GA/Weeks Outcome Route Bth Weight Infant Gen Labor Lgth Anesthesia Del Locatn Provider FOB 12/30/19 Dom 40 live - full term Male epidgus al [facility] 01/06/22 Martha 40 live - full term 7lbs 8oz Female [facility] Delivery Date: 01/06/22 Last Updated by: Franca Patel primary csection for abruption in labor Visit Details Expected Delivery Route/Plan repeat c/s Plans Covid status: [] Flu vaccine: [] Tdap vaccine: [] Rhogam: [] LARC form signed: [] Problem list reviewed and updated with the most current plan of care details and appropriate orders placed. Relevant counseling for the gestational age provided. Continue routine care and follow up unless otherwise noted in visit notes/problem list details OB Flowsheet Initial Weight: Not Recorded Date -?-?-?-?-?-?-?-?-?-?-?-?- EGA Weight BP Urine Prot -?-?-?-?-?-?-?-?-?-?-?-?- Glucose FHR FuHt Pres Dilation -?-?-?-?-?-?-?-?-?-?-?-?- Effaced St Visit Note 08/29/23 -?-?-?-?-?-?-?-?-?-?-?-?- 6w 0d 135 lb 2 oz 135 lb 2 oz 102/62 -?-?-?-?-?-?-?-?-?-?-?-?- 120 -?-?-?-?-?-?-?-?-?-?-?-?- SM- 2mm crl cons with lmp 09/17/23 -?-?-?-?-?-?-?-?-?-?-?-?- 8w 5d 141 lb 4 oz 105/62 Nega tive -?-?-?-?-?-?-?-?-?-?-?--?- Negative 150 -?-?-?-?-?-?-?-?-?-?-?-?- JV- CRL measured and still consistent with LMP. RTO in 2 more weeks for heart tones. new ob labs ordered. JV- CRL measured and still c onsistent with LMP. RTO in 2 more weeks for heart tones. new ob labs ordered. declines NIPT 10/05/23 -?-?-?-?-?-?-?-?-?-?-?-?- 11w 2d 142 lb 4 oz 119/74 Nega tive -?-?-?-?-?-?-?-?-?-?-?-?- Negative 160 -?-?-?-?-?-?-?-?-?-?-?-?- kw- no vb/crampi ng. planning repeat c/s. no concerns today. Anatomy US ordered today. 10/26/23 -?-?-?-?-?-?-?-?-?-?-?-?- 14w 2d 146 lb 2 oz 108/64 Nega tive -?-?-?-?-?-?-?-?-?-?-?-?- Negative 160 -?-?-?-?-?-?-?--?-?-?-?-?- LC- no vb/crampi ng. discussed and declines afp.has mfm appt 11/21/23 -?-?-?-?-?-?-?-?-?-?-?-?- 18w 0d 148 lb 110/68 Negative -?-?-?-?-?-?-?-?--?-?-?-?- Negative 149 -?-?-?-?-?-?-?-?-?-?-?-?- MH-NO VB. John bowens. Will get PN labs today. MFM 11/2912/21/23 -?-?-?-?-?-?-?-?-?-?-?-?- 22w 2d 155 lb 2 oz 117/73 Nega tive -?-?-?-?-?-?-?-?-?-?-?-?- Negative 140 22 -?-?-?-?-?-?-?-?-?-?-?-?- SM- no vb lof go od fm no regular ctx. SM- no vb lof good fm no reg ular ctx. discussed NIPT testing if desired, patient to consider with , discussed RLTCS and testing 01/18/24 -?-?-?-?-?-?-?-?-?-?-?-?- 26w 2d 159 lb 2 oz 103/65 Nega tive -?-?-?-?-?-?-?-?-?-?-?-?- Negative 145 26 -?-?-?-?-?-?-?-?-?-?-?-?- JV- no lof, vagi nal bleeding, or cramping. plts up to 144 from 134. rpt in a month. normal glucola. rpt secton 04/16 @ 7:30am 01/28/24 -?-?-?-?-?-?-?-?-?-?-?-?- 27w 5d 161 lb 110/69 Negative -?-?--?-?-?-?-?-?-?-?-?-?- Negative 150 27 -?-?-?-?-?-?-?-?-?-?-?-?- LC- no vb/ctx/lo f. good fm. repeat cbc in 2 weeks. 02/15/24 -?-?-?-?-?-?-?-?-?-?-?-?- 30w 2d 158 lb 8 oz 112/71 -?-?-?-?-?-?-?-?-?-?-?-?- 140 30 -?-?-?-?-?-?-?-?-?-?-?-?- KW- no vb/lof/ct x. good fm. discussed NSTs at 32 weeks. 02/27/24 -?-?-?-?-?-?-?-?-?-?-?-?- 32w 0d 162 lb 6 oz 108/72 -?-?-?-?-?-?-?-?-?-?-?-?- 130 -?-?-?-?-?-?-?-?-?-?-?-?- JV- pt nervous a bout stillbirth. growth scan today JV- pt nervous about stillbi rth. growth scan today pending. plan for twice weekly nsts starting 36 weeks. rpt pam next week. 03/06/24 -?-?-?-?-?-?-?-?-?-?-?-?- 33w 1d 164 lb 106/68 Negative -?-?-?-?-?-?-?-?-?-?-?-?- Negative 140 -?-?-?-?-?-?-?-?-?-?-?-?- SM- no vb lof go od fm no regular ctx reactive NST 03/14/24 -?-?-?-?-?-?-?-?-?-?-?-?- 34w 2d 164 lb 112/70 Negative -?-?-?-?-?-?-?-?-?-?-?-?- Negative 140 -?-?-?-?-?-?-?-?-?-?-?-?- JV- growth scan 67th% on 02/26, nst reactive. no complaints today. still needs rpt plts 03/21/24 -?-?-?-?-?-?-?-?-?-?-?-?- 35w 2d 166 lb 4 oz 114/73 Nega tive -?-?-?-?-?-?-?-?-?-?-?-?- Negative 140 -?-?-?-?-?-?-?-?-?-?-?-?- JV- nst is react amalia. question answered today about going into labor. No lof, vaginal bleeding, or dec fm. 03/28/24 -?-?-?-?-?-?-?-?-?-?-?-?- 36w 2d 166 lb 116/69 Negative -?-?-?-?-?-?-?-?-?-?-?-?- Negative 140 36 -?-?-?-?-?-?-?-?-?-?-?-?- JV- nst is react amalia No complaints. 03/31/24 -?-?-?-?-?-?-?-?-?-?-?-?- 36w 5d 167 lb 6 oz 110/72 -?-?-?-?-?-?-?-?-?-?-?-?- 140 36 -?-?-?-?-?-?-?-?-?-?-?-?- JV- nst reactive . having some lower back cramping like a menses, nothing persistent. GBS pos in urine. 04/04/24 -?-?-?-?-?-?-?-?-?-?-?-?- 37w 2d 165 lb 6 oz 112/72 Nega tive -?-?-?-?-?-?-?-?-?-?-?-?- Negative 140 37 -?-?-?-?-?-?-?-?-?-?-?-?- KW- no vb/lof/ct x. good fm. declines exam today. NST reactive 04/07/24 -?-?-?-?-?-?-?-?-?-?-?-?- 37w 5d 166 lb 8 oz 106/72 Nega tive -?-?-?-?-?-?-?-?-?-?-?-?- Negative 145 37 -?-?-?-?-?-?-?-?-?-?-?-?- KW- no vb/lof/ct x, good fm. Reactive NST. 04/11/24 -?-?-?-?-?-?-?-?-?-?-?-?- 38w 2d 165 lb 8 oz 112/72 Nega tive -?-?-?-?-?-?-?-?-?-?-?-?- Negative 130 38 -?-?-?-?-?-?-?-?-?-?-?-?- JV- nst reactive . preop consent signed. ROS Constitutional Constitutional: Denies change in weight, fatigue, fever(s), headache(s), poor appetite or weakness Eyes Eyes: Denies blurry vision, change in vision, seeing flashes or spots in vision ENT HEENT: Denies dizziness, headache(s), loss taste/smell or sore throat Cardiovascular Cardiovascular: Denies chest pain, dizziness, dyspnea, irregular heart rhythm, leg edema, palpitations, rapid heart rate or vomiting Respiratory/Chest Respiratory/Chest: Denies chest tightness, cough, dyspnea or breast pain Gastrointestinal Gastrointestinal: Denies abdominal pain, anorexia, constipation, cramping, diarrhea, hemorrhoids, vomiting or weight changes Genitourinary Genitourinary: Denies dysuria, flank pain, genital lesions, genital pain, urinary frequency or urinary urgency Musculoskeletal Musculoskeletal: Denies back pain, difficulty walking, joint pain, limited range of motion, muscle cramps or numbness Integumentary Integumentary: Denies lesions or unusual bruising Neurologic Neurologic: Denies abnormal movements, abnormal speech, dizziness, numbness, seizure-like activity or syncope Psychiatric Psychiatric: Denies anxiety, behavioral changes, change in appetite, change in libido, cognitive impairment, confusion, depression, difficulty concentrating, hallucinations or suicidal thoughts Endocrine Endocrinology: Denies excessive sweating, polydipsia or polyuria Hematologic/Lymphatic Hematologic/Lymphatic: Denies easy bleeding, easy bruising or lymphadenopathy Allergic/Immunologic Allergic/Immunologic: Denies itchy eyes, lip swelling, seasonal rhinorrhea, rhinitis, throat swelling, tongue swelling, eczemia, wheezing or asthma Physical Exam Const alert, oriented x3, no apparent distress and healthy appearing General Appearance: cooperative; Negative for anxious HEENT normocephalic Face and Sinus: normal facial exam Eyes EOMs intact bilaterally and no scleral icterus General Eye: normal appearance of both eyes Neck full ROM and supple Lymph Lymphatic: no lymphadenopathy noted Chest Chest: abnormal inspection of the chest Resp normal respiratory effort Effort and Inspection: able to speak in complete sentences Cardio regular rate GI soft to palpation and non-tender Inspection: gravid Palpation: soft; Negative for tender Back/Spine no CVA tenderness Extremity normal to inspection, full ROM and no clubbing, cyanosis or edema General Extremity: Negative for calf tenderness or edema Skin Lesions: no lesions Rashes: no rashes Psych mental status grossly normal Labs Labs Labs: Blood Type B POSITIVE Antibody Screen NEGATIVE Hct 36.2 % (37-47) L Hgb 11.8 g/dL (12.0-15.0) L Pap Smear Negative Obstetrics Ultrasound Syphilis Total Ab Non-reactive Rubella IgG Antibody Reactive (Nonreactive) Hep Bs Antigen Non-Reactive (Nonreactive) Hepatitis C Antibody Non-Reactive (Nonreactive) Chlamydia DNA (MYNOR) Negative (Negative) N.gonorrhoeae DNA (MYNOR) Negative (Negative) HIV 1&2 Antibody Non-Reactive (Nonreactive) Glucose 1 Hr 50 gm 115 mg/dL (70-140) Rhogam given: No Assessment & Plan (1) Heart disease: COMMENT: pulmonary valve regurgitation. maternal echocardiogram recommended per [facility] weekly nsts at 32-35, twice weekly at 36 and growth scans monthly. (2) Thrombocytopenia affecting : COMMENT: plt 134 with NOB labs. consult with [facility]-CBC q 4 weeks. if <100k refer to hematology for possible ITP. (3) GBS (group B streptococcus) UTI complicating : QUALIFIERS: Trimester: first trimester Qualified Code(s): O23.41 - Unspecified infection of urinary tract in , first trimester; B95.1 - Streptococcus, group B, as the cause of diseases classified elsewhere COMMENT: not high enough CFU to treat (4) AMA (advanced maternal age) multigravida 35+: QUALIFIERS: Trimester: second trimester Qualified Code(s): O09.522 - Supervision of elderly multigravida, second trimester COMMENT: discussed NIPT. serial growth US q4 weeks per [facility] 32 weeks-67%. weekly nst after 32. deliver 39 (5) H/O miscarriage, currently : COMMENT: x2 @ 6wks last miscarriage 04/2023. (6) History of delivery: COMMENT: plan RLTCS 04/16 @ 7:30 with JV (7) History of placenta abruption: COMMENT: during delivery. (8) Supervision of high-risk of elderly multigravida (>= 35 years old at time of delivery): COMMENT: PRR , FRANKLIN 04/23/24 boy Martha Rios Alejo (9) : QUALIFIERS: Weeks of gestation: 38 weeks Qualified Code(s): Z3A.38 - 38 weeks gestation of COMMENT: discussed at this time declined genetic & carrier testing. nl anatomy declined ntd screen, low risk NIPT PLAN: Plan After discussing the patient's diagnosis and treatment plan options, patient wishes to proceed with surgical management. I have discussed with the patient the risks, benefits, and alternatives of the procedure which include but are not limited to risks of anesthesia, bleeding, infection, possible damage to bowel, bladder, or surrounding vasculature which could lead to additional surgery to evaluate any complications. Patient agrees to procedure and wishes to proceed. ACOG/uptodate references given for additional information regarding procedure. Plan for repeat section on 04/15/24
[2024-04-16] VITALS (20 sets, daily range): BP systolic 90–134; BP diastolic 42–94; PULSE 57–78; RESP 14–18; TEMP 35.8–36.8; O2SAT 96–100; BMI 27.2
[2024-04-16] MEDS: Lactated Ringers 1,000 ML 999 ML IV (05:55)
[2024-04-16 06:07] LABS: Absolute Lymphocyte Count 1.48 X10^3/uL (0.83-4.51); Basophil# 0.04 X10^3/uL; Basophil% 0.5 % (0-1); Eosinophil# 0.09 X10^3/uL; Eosinophils% 1.1 % (0-5); Hematocrit 38.6 % (37-47); Hemoglobin 12.3 g/dL (12.0-15.0); Lymphocyte # 1.48 X10^3/ul (0.83-4.51); Lymphocyte % 17.6 % (19-41); Mean Corp Hgb Conc 31.9 g/dL (32-36); Mean Corpuscular Hgb 28.7 pg (27.0-32.0); Mean Corpuscular Volume 90.2 fL (81-99); Mean Platelet Vol. 12.1 fl (6.2-12.0); Monocyte% 8.3 % (0-10); NRBC Flagged by Analyzer 0 % (0-5); Neutrophil # 6.03 X10^3/uL (2.7-7.7); Neutrophil % 71.7 % (47-70); Platelet Count 112 K/mm3 (150-450); RBC Distribution Width CV 13.7 % (11.6-14.6); RBC Distribution Width SD 44.4 fl (35.1-43.9); Red Blood Count 4.28 M/mm3 (4.2-5.4); White Blood Count 8.4 K/mm3 (4.4-11.0)
[2024-04-16] MEDS: Lactated Ringers 1,000 ML 150 ML IV (06:46)
[2024-04-16] MEDS: Sodium Citrate/Citric Acid 30 ML UDC PO (07:11)
[2024-04-16] MEDS: Acetaminophen 500 MG Tablet 1000 MG PO ×3 (07:11→20:25)
[2024-04-16] MEDS: Cefazolin 2 GM in 0.9% Normal Saline (100mL Bag) 100 ML IV (07:30)
--- NOTE | 2024-04-16 07:34 | DCINST_ITS ---
Discharge Instructions Diet Discharge Diet: No restrictions Activity Discharge Activity: May Not Drive (for 2 weeks or while taking narcotic pain medications.), May Shower and May Take a Tub Bath (in 7 days.) May resume sexual activity in: 4-6 weeks Weight Bearing Status: Full weight bearing Lifting Restrictions: 20 pounds Dressing / Incision Call your doctor if your incision/area has: Continuous Slow Oozing, Sudden Increased Bleeding, Increased Pain/ Swelling, Increased Redness and Foul Smelling Discharge Call your doctor if you observe: Fever of 101 or Higher and Using more than 1 pad per hour Suture Line Care: Avoid Pulling/Pushing and Avoid Pinching/Bending Cleanse incision/area with: Soap & Water and Keep Dressing Clean & Dry Follow Up Care Please Follow Up With: Maria Isabel Franklin DO When: Call [phone] to make an appointment for an incision check in 1-2 weeks. Test Results: Test results from this visit will be discussed in further detail at your follow- up appointment, if applicable. Discharge Plan Admission Admit Date/Time: 04/16/24 05:35 Primary Reason for Your Visit: SECTION Attending Provider: Maria Isabel Franklin Primary Care Provider: Ky Stoddard Discharge Orders/Prescriptions Prescriptions: New ibuprofen 800 mg tablet 800 mg PO Q8H PRN (Reason: pain) Qty: 30 0RF Continued vit,[id number] 1 TABLET tablet 1 tab PO DAILY Discontinued aspirin [Adult Aspirin Regimen] 81 mg tablet,delayed release (DR/EC) 81 mg PO DAILY Referrals / Follow Up: Ky Stoddard MD [Primary Care Provider] - Disposition Disposition (needs filled in before D/C Order can be placed): Home, Self Care
[2024-04-16 08:44] LABS: Syphilis Antibodies Non-reactive
--- NOTE | 2024-04-16 08:47 | EX.PCM.OBRPT ---
Assessment & Plan (1) Thrombocytopenia affecting : COMMENT: plt 134 with NOB labs. consult with [facility]-CBC q 4 weeks. if <100k refer to hematology for possible ITP. (2) GBS (group B streptococcus) UTI complicating : QUALIFIERS: Trimester: first trimester Qualified Code(s): O23.41 - Unspecified infection of urinary tract in , first trimester; B95.1 - Streptococcus, group B, as the cause of diseases classified elsewhere COMMENT: not high enough CFU to treat (3) H/O miscarriage, currently : COMMENT: x2 @ 6wks last miscarriage 04/2023. (4) History of placenta abruption: COMMENT: during delivery. (5) Supervision of high-risk of elderly multigravida (>= 35 years old at time of delivery): COMMENT: PRR , FRANKLIN 04/23/24 boy SURESH Martha Fernandes Alejo (6) : QUALIFIERS: Weeks of gestation: 38 weeks Qualified Code(s): Z3A.38 - 38 weeks gestation of COMMENT: discussed at this time declined genetic & carrier testing. nl anatomy declined ntd screen, low risk NIPT (7) AMA (advanced maternal age) multigravida 35+: QUALIFIERS: Trimester: second trimester Qualified Code(s): O09.522 - Supervision of elderly multigravida, second trimester COMMENT: discussed NIPT. serial growth US q4 weeks per [facility] 32 weeks-67%. weekly nst after 32. deliver 39 (8) Heart disease: COMMENT: pulmonary valve regurgitation. maternal echocardiogram recommended per [facility] weekly nsts at 32-35, twice weekly at 36 and growth scans monthly. (9) History of delivery: COMMENT: plan RLTCS 04/16 @ 7:30 with JV Maternal Data Information FRANKLIN Calculator Estimated Delivery Date Method Current WG Current Estimate 04/23/24 LMP (Certain) 39w 0d Other Estimates 04/19/24 Ultrasound #1 39w 4d Final FRANKLIN Source: LMP Gestational age: 39 Details Operative Information Date of Procedure: 04/16/24 Pre-Operative Diagnosis: 39 y/o @ 39 weeks, history of prior section declines tolac, desires permanent sterilization Post-Operative Diagnosis: 39 y/o @ 39 weeks, history of prior section declines tolac, desires permanent sterilization Indications for : Repeat Elective Classification: Scheduled Procedure Type: low transverse automation and controls manager #1: Alonso Bassett Type of Anesthesia: Spinal Anesthesiologist: Juan Yeboah Antibiotic Given: Ancef 2 grams IV x1 Drain: Simon to straight drain Estimated Blood Loss: 500cc Procedure Start Time: 07:51 Time of Delivery: 07:56 Findings Description of Procedure: The patient is a 39 y/o @ 39 weeks who presented for repeat and bilateral salpingectomy. Spinal anesthesia was placed without difficulty. Simon catheter was placed. The patient was placed in the dorsal supine position with leftward tilt. Patient was prepped and draped in the normal sterile fashion. Pfannenstiel skin incision was made with the scalpel and carried through to the underlying layer of fascia with the scalpel. Fascia was nicked in the midline and the incision extended laterally. The rectus bellies were dissected off superiorly and inferiorly with out complication both sharply and bluntly. The peritoneum was entered digitally. The incision was stretched and a low transverse uterine incision was made with the scalpel. The infant's head was delivered atraumatically followed by the anterior and posterior shoulders without complication the rest of the delivered. The cord was clamped and cut and the was handed off to awaiting nurse. The placenta was delivered spontaneously immediately following and was noted to be intact and have a three-vessel cord. The uterus was exteriorized cleared of all clots and debris, and the incision was closed in a double layer closure using #1 Monocryl. The ovaries and fallopian tubes were noted to be within normal limits. The mesosalpinx of the right fallopian tubes was grasped with a kofi clamp and the tissue was cauterized and cut to the cornua. The fallopian tube was passed off for pathology analysis. The same procedure was performed on the left side. The uterus was returned to the maternal abdomen and gutters were cleared of all clots and debris. The peritoneum was closed with 3-0 Monocryl in a running fashion. Fascia was closed with 0 PDS in a running fashion. Subcutaneous tissue was copiously irrigated and the skin was closed with 3-0 Monocryl in a subcuticular fashion. Mepilex dressing was applied without complication. Patient was taken to recovery in stable condition. Presentation: Positive for Vertex Amniotic Membrane Rupture Type: Artificial Amniotic Fluid Description: Clear Placental Delivery Description: Expressed Placenta Disposition: [facility] Specimen(s) Sent to Pathology: bilateral fallopian tubes Cord Vessel Description: 3 Vessels Cord Entanglement: None A Gender: Male (1 minute): 8 (5 minute): 9 Delayed Cord Clamping: Yes Complications Risks of Surgery Discussed w/Patient: Bleeding, Anesthesia Risks, Infection, Need for Future C-Sections, Permanency, Failure Rate of 1 to 2%, Injury to surrounding structure(s) including bowel and bladder and Availability of other non-permanent control options Complications: none Multi Select Codes Urinary/Genital Urinary/Genital CPT Codes: 74689 Delivery [facility]
[2024-04-16] MEDS: Oxytocin 15 Units/NS 250ml 15 UNITS/250 ML IV.SOLN 83 UNITS IV (09:00)
[2024-04-16] MEDS: Ketorolac 30 MG/ML Syringe IV ×3 (09:21→21:30)
--- NOTE | 2024-04-16 09:22 | FALS_PTH ---
PATIENT: FOX DURAN LOC: [facility] U#:[id number] AGE/SX: 39/F ROOM: [facility] RE04/16/[address]: Dr. Maria Isabel Franklin DO : 1985 BED: 1 DIS: 04/18/2024 SPEC #: [id number] RECD: 04/16/24 11:26 STATUS: CARLOS SARAHI #: [id number] MIKEL: 04/16/24 09:[address]: Maria Isabel Franklin DEPT: SURGICAL PATHOLOGY RECD BY: Daniella Montoya ENTERED: 04/16/24 11:27 SP TYPE: FALL TUBES OTHR DR: Dr. Ky Stoddard MD Tissues: Fallopian tube Procedures: Surgery Specimen Level II HEADER OPERATION: Tubal ligation PRE-OP DIAGNOSIS: Sterilization TISSUE SUBMITTED: Fallopian tubes MICROSCOPIC DIAGNOSIS Right fallopian tube, salpingectomy: Complete cross section of fallopian tube with no pathologic change. Left fallopian tube, salpingectomy: Complete cross section of fallopian tube. Benign paratubal cyst. AM: 04/17/2024 MICROSCOPIC DESCRIPTION Slides are reviewed. GROSS DESCRIPTION Received in fixative is one container labeled with the patient's name and designated bilateral fallopian tubes. The specimen consists of two fallopian tubes with an average length of 7.5 cm and has an average diameter of 0.8 cm. The left fallopian tube at its terminal end contains a smooth glistening cyst containing clear fluid. The cyst measures 2.0cm in greatest dimension. Both fallopian tubes have normal fimbriated ends. No mass lesions are identified. Dental Billing Specialist sections are submitted in two cassettes as follows: 1 - right fallopian tube, 2 - left fallopian tube and paratubal cyst. / AM: 04/16/24 TC:5 CPT: 74615,,82097
[2024-04-16 09:46] LABS: Pathology Specimen OB SEE PATHOLOGY REPORT
[2024-04-16] MEDS: Lactated Ringers 1,000 ML 100 ML IV (12:10)
[2024-04-16] MEDS: Ondansetron 4 MG/2 ML Vial IV (12:10)
[2024-04-16] MEDS: proCHLORPERazine 10 MG/2 ML Vial IV (14:24)
[2024-04-17 01:00] VITALS: BP 109/70; PULSE 56; RESP 16; O2SAT 98
[2024-04-17] MEDS: Acetaminophen 500 MG Tablet 1000 MG PO ×4 (01:02→19:42)
[2024-04-17 03:58] VITALS: BP 102/71; PULSE 61; RESP 16; O2SAT 99
[2024-04-17] MEDS: Ketorolac 30 MG/ML Syringe IV (04:00)
[2024-04-17 05:47] LABS: Hemoglobin 10.4 g/dL (12.0-15.0); Mean Corp Hgb Conc 32.5 g/dL (32-36); Mean Corpuscular Hgb 29.2 pg (27.0-32.0); Mean Corpuscular Volume 89.9 fL (81-99); Mean Platelet Vol. 13.5 fl (6.2-12.0); POSITIVE COUNT YES; Platelet Count 66 K/mm3 (150-450); RBC Distribution Width CV 13.7 % (11.6-14.6); RBC Distribution Width SD 45.1 fl (35.1-43.9); Red Blood Count 3.56 M/mm3 (4.2-5.4); White Blood Count 9.3 K/mm3 (4.4-11.0)
[2024-04-17 05:56] LABS: Scan Indicated on CBC? Y/N YES- FLAGS NOTED
[2024-04-17 06:25] LABS: Differential Comment SCANNED
[2024-04-17 07:02] LABS: Differential Indicated SCAN CRITERIA MET
--- NOTE | 2024-04-17 07:37 | PN.OBGYN_ITS ---
Subjective Subjective Patient doing well without complaints. bleeding WNL. Tolerating PO. Ambulating and voiding without difficulty. infant feeding well. Denies chest pain, shortness of breath, calf pain/swelling, fevers, chills, lightheadedness. Objective Data Objective Data Vital Signs: Vital Signs Temp Pulse Resp BP Pulse Ox O2 Del Method 97.6 F L 61 16 102/71 99 Room Air 04/16/24 20:21 04/17/24 03:58 04/17/24 03:58 04/17/24 03:58 04/17/24 03:58 04/17/24 03:58 Oxygen Delivery Method Room Air Weight: 168 lb 13.985 oz Body Mass Index (BMI) 27.2 Intake & Output: Intake and Output for Last 24 Hours 04/15/24 04/16/24 04/17/24 23:59 23:59 23:59 Intake Total 3209.15 / 3209.15 Output Total 1350 / 1350 1000 / 1000 Balance 1859.15 / 1859.15 -1000 / -1000 Lab / Micro Data 04/17/24 06:59 Labs: Laboratory Results - last 24 hr 04/16/24 05:55: Syphilis Total Ab Non-reactive 04/17/24 05:25: WBC 9.3, RBC 3.56 L, Hgb 10.4 L, Hct 32.0 L, MCV 89.9, MCH 29.2, MCHC 32.5, RDW Std Deviation 45.1 H, RDW Coeff of Lisa 13.7, Plt Count 66 L, MPV 13.5 H, Differential Comment SCANNED 04/17/24 06:59: Plt Count ROS Constitutional Constitutional: Reports systems reviewed and no addt'l complaints, except as documented Cardiovascular Cardiovascular: Reports systems reviewed and no addt'l complaints, except as documented Respiratory/Chest Respiratory/Chest: Reports systems reviewed and no addt'l complaints, except as documented Gastrointestinal Gastrointestinal: Reports systems reviewed and no addt'l complaints, except as documented Physical Exam Const alert, oriented x3 and no apparent distress HEENT Head and Scalp: atraumatic Resp normal respiratory effort Bimanual Exam - Vag & Uterus: uterus non-tender Uterus Palpation: uterus fundus firm (below Umbilicus) Assessment & Plan (1) delivery delivered: COMMENT: 04/16/24 JV (2) Thrombocytopenia affecting : COMMENT: decreased now to 66, ordered SD pack of platelets to have on hold and heme consulted for suspicion of possible chronic ITP. (3) Heart disease: COMMENT: pulmonary valve regurgitation. maternal echocardiogram recommended per [facility] weekly nsts at 32-35, twice weekly at 36 and growth scans monthly. PLAN: Plan s/p LTCS PPD # 1 1. routine post care- monitor bleeding and repeat cbc in 4 hours, appreciate heme consult 2. breast feeding- support given 3. rh positive 4. rubella immune platelets on hold, transfuse only if heme recommends or hemorrhage situation.
[2024-04-17 09:21] VITALS: BP 109/72; PULSE 63; RESP 16; TEMP 36.3; O2SAT 100
[2024-04-17] MEDS: Ibuprofen 600 MG Tablet PO ×3 (09:39→22:29)
[2024-04-17] MEDS: Senna/Docusate Sodium 1 Tablet PO (09:39)
[2024-04-17 10:07] LABS: Absolute Lymphocyte Count 0.81 X10^3/uL (0.83-4.51); Absolute Neutrophil Count 7.9 X10^3/uL (2.0-7.7); Basophil# 0.03 X10^3/uL; Basophil% 0.3 % (0-1); Eosinophil# 0.05 X10^3/uL; Eosinophils% 0.5 % (0-5); Hematocrit 35.1 % (37-47); Hemoglobin 11.2 g/dL (12.0-15.0); Lymphocyte # 0.81 X10^3/ul (0.83-4.51); Lymphocyte % 8.8 % (19-41); Mean Corp Hgb Conc 31.9 g/dL (32-36); Mean Corpuscular Hgb 28.8 pg (27.0-32.0); Mean Corpuscular Volume 90.2 fL (81-99); Mean Platelet Vol. 13.2 fl (6.2-12.0); Monocyte# 0.39 X10^3/uL; Monocyte% 4.2 % (0-10); NRBC Flagged by Analyzer 0 % (0-5); Neutrophil # 7.88 X10^3/uL (2.7-7.7); Neutrophil % 85.5 % (47-70); POSITIVE COUNT YES; Platelet Count 97 K/mm3 (150-450); RBC Distribution Width CV 13.8 % (11.6-14.6); RBC Distribution Width SD 45.5 fl (35.1-43.9); Red Blood Count 3.89 M/mm3 (4.2-5.4); White Blood Count 9.2 K/mm3 (4.4-11.0)
[2024-04-17 10:26] LABS: Differential Indicated SCAN CRITERIA MET
[2024-04-17 12:10] LABS: Differential Comment SCANNED; Platelet Estimate MOD DEC (ADEQ)
--- NOTE | 2024-04-17 13:27 | PN_ITS ---
Progress Note repeat platelets 97,000, bleeding stable
--- NOTE | 2024-04-17 13:27 | PCM.PN.BLA ---
Progress Note repeat platelets 97,000, bleeding stable
[2024-04-17 13:30] VITALS: BP 121/67; PULSE 67; RESP 16; TEMP 37.1; O2SAT 99
[2024-04-17 13:41] LABS: International Normalized Ratio 1.1; Prothrombin Time (Protime)PT. 13.7 SECONDS (11.7-14.9)
[2024-04-17 13:42] LABS: Partial Thromboplast Time 24.5 Seconds (24.1-36.2)
[2024-04-17 14:11] LABS: ALB/GLOB Ratio 0.6 RATIO (0.9-2.4); AST(SGOT) 33 U/L (15-37); Alanine Aminotransfer ALT/SGPT 18 U/L (13-56); Albumin, Serum 2.2 g/dL (3.2-5.0); Alkaline Phosphatase 108 U/L (45-117); Anion Gap 7 (5-15); BUN 9 mg/dL (7-18); BUN/Creat Ratio 13.8 RATIO (10-20); Calcium,Total 8.9 mg/dL (8.5-10.1); Chloride 109 mmol/L (98-107); Creatinine, Serum 0.65 mg/dL (0.55-1.02); EST Glomerular Filtration Rate 106 mL/min (>60); Est Glom Filt Rate - Afr Amer 128 mL/min (>60); Estimated Creatinine Clearance 119.07 ml/min; Globulin 3.6 g/dL (2.2-4.2); Glucose 95 mg/dL (74-106); LDH 256 U/L (84-246); Potassium 4.2 mmol/L (3.5-5.1); Protein, Total 5.8 g/dL (6.4-8.2); Sodium Level 138 mmol/L (136-145)
--- NOTE | 2024-04-17 16:54 | ONC.CONSULT ---
Assessment & Plan Assessment/Plan (1) Thrombocytopenia affecting : Status: Acute Code(s): O99.119 - Other diseases of the blood and blood-forming organs and certain disorders involving the immune mechanism complicating , unspecified trimester; D69.6 - Thrombocytopenia, unspecified Plan: Thrombocytopenia associated with vs. ITP. Differential diagnosis cannot be made at this time, post 1 day. Blood pressure is stable, LFTs and coags are within normal limits. Platelet count this morning was 66,000 and has since improved to 97,000 this afternoon. Historic CBCs show platelets range between 105-140, however most assessments viewable have been during pregnancies. In the absence of bleeding, continue to monitor. Case was discussed with Dr. Bhatti, who informed the aforementioned plan. Will not follow further this admission ? HPI Consult Data Date of Service:: 04/17/24 PCP / Referring Provider: Dr. Ky Stoddard MD Attending: Dr. Maria Isabel Franklin DO Chief Complaint Chief Complaint: Thrombocytopenia History of Present Illness History of Present Illness: 39 yr old female with a PMH positive for pulmonary costa regurgitation, placental abruption, and miscarriage who underwent section on 04/16/24. A hematology consult was requested to address a platelet count of 66K earlier this morning. Platelets have since increased to 97K. Interval History Interval History: Upon entering the room, patient is sitting upright in bed. She denies excessive vaginal bleeding at this time. Further denies easy bruising or overt episodes of bleeding otherwise. Underwent wisdom tooth extraction at approx age 18, tolerated procedure well without excessive bleeding. 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 Diane Giang MD) History of placenta abruption Thrombocytopenia Complete Heart disease Positive GBS test Home Medications ?Medication ?Instructions ?Recorded ?Last Taken ?Type vits,calcium no.78-iron 1 tab PO DAILY 12/29/19 04/15/24 08:00 History fumarate-folic acid 29 mg-1 mg 1 TAB tablet ibuprofen 800 mg tablet 800 mg PO Q8H PRN pain #30 tabs 04/16/24 Unknown Rx Allergy/AdvReac Type Severity Reaction Status Date / Time amoxicillin Allergy Mild hives Verified 04/16/24 06:37 Family History Father CVA (cerebral vascular accident) Grandmother Colon cancer, Onset Age: 65 maternal Grandfather Cancer Bladder cancer, Onset Age: 80 Maternal Surgical History (Updated 04/17/24 @ 06:59 by Danica Noriega NP, CUSTOMER SUPPORT REPRESENTATIVE-C) Luck teeth extracted History of delivery Status post primary low transverse section Social History adopted: No household members: spouse and children number of children: 2 current occupational status: employed 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 pets and animals: Yes (no litter box contact) pets and animals: cat(s) history of recent travel: No sexually active: Yes Smoking Status: Never smoker alcohol intake: current details: Not during substance use type: does not use well-balanced diet: daily or most days caffeine: No eating out: 1-3 times/week during the past year weight has: remained stable what type of physical activity do you participate in: walking and weight training frequency: daily duration: 30-45 minutes/day francheska/confucianism: Spiritism seatbelt use: always do you feel safe at home: Yes additional social history: [id number] 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 Physical Exam Const alert, oriented x3 and no apparent distress HEENT Head and Scalp: atraumatic Eyes conjunctivae normal and no scleral icterus Resp normal respiratory effort Skin no jaundice and no petechiae General Skin Exam: Negative for ecchymosis Psych Attitude: calm and engaged Vital Signs Temperature 98.7 F 04/17/24 13:30 Temperature Source Temporal 04/17/24 13:30 Pulse Rate 67 04/17/24 13:30 Respiratory Rate 16 04/17/24 13:30 Respiratory Depth Normal 04/16/24 14:45 Respiratory Pattern Normal 04/16/24 08:52 Blood Pressure 121/67 H 04/17/24 13:30 Blood Pressure Mean 85 04/17/24 13:30 BP Systolic 128 04/16/24 05:51 BP Diastolic 60 04/16/24 05:51 Blood Pressure Source Monitor 04/17/24 13:30 Blood Pressure Position Semi-Fowlers 04/17/24 13:30 Blood Pressure Location Right Arm 04/17/24 13:30 Baseline BP 128/60 04/16/24 10:50 Pulse Ox 99 04/17/24 13:30 Oxygen Delivery Method Room Air 04/17/24 13:30 Laboratory Results - last 24 hr 04/17/24 05:25: WBC 9.3, RBC 3.56 L, Hgb 10.4 L, Hct 32.0 L, MCV 89.9, MCH 29.2, MCHC 32.5, RDW Std Deviation 45.1 H, RDW Coeff of Lisa 13.7, Plt Count 66 L, MPV 13.5 H, Differential Comment SCANNED 04/17/24 06:59: Plt Count 04/17/24 09:50: WBC 9.2, RBC 3.89 L, Hgb 11.2 L, Hct 35.1 L, MCV 90.2, MCH 28.8, MCHC 31.9 L, RDW Std Deviation 45.5 H, RDW Coeff of Lisa 13.8, Plt Count 97 L, MPV 13.2 H, Immature Gran % (Auto) 0.700, Neut % (Auto) 85.5 H, Lymph % (Auto) 8.8 L, [place] % (Auto) 4.2, Eos % (Auto) 0.5, Baso % (Auto) 0.3, Absolute Neuts (auto) 7.9 H, Absolute Lymphs (auto) 0.81 L, Nucleated RBC % 0, Differential Comment SCANNED, Platelet Estimate MOD 04/17/24 13:20: PT 13.7, INR 1.1, APTT 24.5, Sodium 138, Potassium 4.2, Chloride 109 H, Carbon Dioxide 22.0, Anion Gap 7, BUN 9, Creatinine 0.65, Estim Creat Clear Calc 119.07, Est GFR (MDRD) Af Amer 128, Est GFR (MDRD) Non-Af 106, BUN/Creatinine Ratio 13.8, Glucose 95, Calcium 8.9, Total Bilirubin 0.20, AST 33, ALT 18, Alkaline Phosphatase 108, Lactate Dehydrogenase 256 H, Total Protein 5.8 L, Albumin 2.2 L, Globulin 3.6, Albumin/Globulin Ratio 0.6 L
--- NOTE | 2024-04-17 17:56 | PCM.PN.BLA ---
Progress Note bleeding stable, repeat cbc in am, monitor overnight
[2024-04-17 19:45] VITALS: BP 104/80; PULSE 74; RESP 16; TEMP 36.8; O2SAT 98
[2024-04-18] MEDS: Acetaminophen 500 MG Tablet 1000 MG PO ×2 (00:53→06:22)
[2024-04-18 01:02] VITALS: BP 101/64; PULSE 68; RESP 16; TEMP 36.6; O2SAT 99
[2024-04-18] MEDS: Ibuprofen 600 MG Tablet PO (06:22)
[2024-04-18 06:45] LABS: Hematocrit 35.3 % (37-47); Hemoglobin 11.3 g/dL (12.0-15.0); Mean Corpuscular Volume 90.7 fL (81-99); Mean Platelet Vol. 13.1 fl (6.2-12.0); Platelet Count 123 K/mm3 (150-450); RBC Distribution Width SD 45.7 fl (35.1-43.9); Red Blood Count 3.89 M/mm3 (4.2-5.4); White Blood Count 10.8 K/mm3 (4.4-11.0)
[2024-04-18 09:00] VITALS: BP 106/66; PULSE 71; RESP 16; TEMP 36.5; O2SAT 98
--- NOTE | 2024-04-18 09:38 | DS.PCM_ITS ---
Providers Date of Admission: 04/16/24 Primary Care Physician: Dr. Ky Stoddard MD Consultations 04/17/24 07:05 Consult: Oncology/Hematology Routine Consulting Provider: [facility] ([facility]) Reason for Consult: thrombocytopenia EMERGENT Consult: Yes MD Notified: Yes Date Notified: 04/17/24 Time Notified: 07:05 Method of Notification: Verbal Reason For Visit: REPEAT C SECTION Diagnosis Discharge Diagnosis (1) Thrombocytopenia affecting : Status: Acute Code(s): O99.119 - Other diseases of the blood and blood-forming organs and certain disorders involving the immune mechanism complicating , unspecified trimester; D69.6 - Thrombocytopenia, unspecified Plan After discussing the patient's diagnosis and treatment plan options, patient wishes to proceed with surgical management. I have discussed with the patient the risks, benefits, and alternatives of the procedure which include but are not limited to risks of anesthesia, bleeding, infection, possible damage to bowel, bladder, or surrounding vasculature which could lead to additional surgery to evaluate any complications. Patient agrees to procedure and wishes to proceed. ACOG/uptodate references given for additional information regarding procedure. Plan for repeat section on 04/15/24 Medications at Discharge Home Medications vits,calcium no.78-iron fumarate-folic acid 29 mg-1 mg tablet 1 tab PO DAILY 12/29/19 ibuprofen 800 mg tablet 800 mg PO Q8H PRN pain #30 tabs 04/16/24 Hospital Course Operations section Summary of Care Provided Minutes Spent on Discharge: 30 Hospital Course: The patient was admitted for a repeat section on 04/16/24 There were no complications other than low platelets on POD #1. On day #1 she was tolerating pain well and ambulating. A hem onc consult was performed and on day #2 her plts were back up to 123 . she was ready for discharge. Physical Exam HEENT normocephalic Resp normal respiratory effort and normal air movement GI soft to palpation, non-tender and non-distended Rectal Exam: other Other Details: Incision is clean, dry, and intact no CVA tenderness Extremity normal to inspection General Extremity: edema bilateral (trace ) Weight / BMI Weight Weight: 168 lb 13.985 oz Body Mass Index (BMI) 27.2 ABG / Lab / Microbiology Data 04/18/24 06:30 04/17/24 13:20 Laboratory: Laboratory Results - last 24 hr 04/17/24 09:50: WBC 9.2, RBC 3.89 L, Hgb 11.2 L, Hct 35.1 L, MCV 90.2, MCH 28.8, MCHC 31.9 L, RDW Std Deviation 45.5 H, RDW Coeff of Lisa 13.8, Plt Count 97 L, M PV 13.2 H, Immature Gran % (Auto) 0.700, Neut % (Auto) 85.5 H, Lymph % (Auto) 8.8 L, [place] % (Auto) 4.2, Eos % (Auto) 0.5, Baso % (Auto) 0.3, Absolute Neuts (auto) 7.9 H, Absolute Lymphs (auto) 0.81 L, Nucleated RBC % 0, Differential Comment SCANNED, Platelet Estimate MOD 04/17/24 13:20: PT 13.7, INR 1.1, APTT 24.5, Sodium 138, Potassium 4.2, Chloride 109 H, Carbon Dioxide 22.0, Anion Gap 7, BUN 9, Creatinine 0.65, Estim Creat Clear Calc 119.07, Est GFR (MDRD) Af Amer 128, Est GFR (MDRD) Non-Af 106, BUN/Creatinine Ratio 13.8, Glucose 95, Calcium 8.9, Total Bilirubin 0.20, AST 33, ALT 18, Alkaline Phosphatase 108, Lactate Dehydrogenase 256 H, Total Protein 5.8 L, Albumin 2.2 L, Globulin 3.6, Albumin/Globulin Ratio 0.6 L 04/18/24 06:30: WBC 10.8, RBC 3.89 L, Hgb 11.3 L, Hct 35.3 L, MCV 90.7, MCH 29.0, MCHC 32.0, RDW Std Deviation 45.7 H, RDW Coeff of Lisa 14.0, Plt Count 123 L, MPV 13.1 H D/C Instructions Discharge Diet: No restrictions May resume sexual activity in: 4-6 weeks Weight Bearing Status: Full weight bearing Call your doctor if your incision/area has: Continuous Slow Oozing, Sudden Increased Bleeding, Increased Pain/ Swelling, Increased Redness and Foul Smelling Discharge Call your doctor if you observe: Fever of 101 or Higher and Using more than 1 pad per hour Suture Line Care: Avoid Pulling/Pushing and Avoid Pinching/Bending Cleanse incision/area with: Soap & Water and Keep Dressing Clean & Dry Please Follow Up With: Maria Isabel Franklin DO When: Call [phone] to make an appointment for an incision check in 1-2 weeks. Meaningful Use Info Meaningful Use Meaningful Use Diagnoses (Choose all that apply): None applicable Ischemic Stroke Statin Dosing Therapy Reference: STATIN DOSE THERAPY REFERENCE: * Patients > 75 years receive moderate or high dose statin therapy. * Patients 75 years or YOUNGER should receive HIGH intensity statin dose unless contraindicated. You will be required to document reason for non-treatment if statin daily dose does not meet guidelines. HIGH DOSE STATIN THERAPY DAILY Atorvastatin > than or = to 40 mg Rosuvastatin > than or = to 20 mg Amlodipine + Atorvastatin > than or = to 2.5/40 mg Ezetimibe + Simvastatin 10/80 mg Simvastatin 80mg Discharge Plan Admission Admit Date/Time: 04/16/24 05:35 Primary Reason for Your Visit: SECTION Attending Provider: Maria Isabel Franklin Primary Care Provider: Ky Stoddard Consulting Providers: Eitan Mendenhall; Ky Bhatti; Natali Osuna; Simone Coyle; Case Waterman; Ky Aaron; Luis Neves; Maria Fernanda Dsouza MAIL CARRIER TECHNICIAN Instructions Patient Instructions: After a Discharge Orders/Prescriptions Prescriptions: New ibuprofen 800 mg tablet 800 mg PO Q8H PRN (Reason: pain) Qty: 30 0RF Continued vit,[id number] 1 TABLET tablet 1 tab PO DAILY Discontinued aspirin [Adult Aspirin Regimen] 81 mg tablet,delayed release (DR/EC) 81 mg PO DAILY Referrals / Follow Up: Ky Stoddard MD [Primary Care Provider] - Disposition Disposition (needs filled in before D/C Order can be placed): Home, Self Care
--- NOTE | 2024-04-22 14:20 | NURSING ---
follow up phone call made, no answer, voicemail left
== END 2024-04-18 09:30 | disposition home or self-care (01) | DRG 784 ==
PROVIDERS: Internal Medicine Hematology & Oncology; Obstetrics & Gynecology; Admitting Provider Obstetrics & Gynecology; PCP Family Medicine; Referring Provider Obstetrics & Gynecology; Visit Provider Obstetrics & Gynecology
PROC: 10D00Z1 Extraction of Products of Conception, Low, Open Approach (ICD-10-PCS; CPT 59514; principal; 2024-04-16 07:00)
DX: O34.211 Maternal care for low transverse scar from previous cesarean delivery (principal); O99.12 Other diseases of the blood and blood-forming organs and certain disorders involving the immune mechanism complicating childbirth; D69.6 Thrombocytopenia, unspecified; O99.824 Streptococcus B carrier state complicating childbirth; Z37.0 Single live birth; Z3A.39 39 weeks gestation of pregnancy; Z79.82 Long term (current) use of aspirin; Z79.899 Other long term (current) drug therapy
CPT/HCPCS: 59025; 59050; 80053; 83615; 85025; 85027; 85049; 85610; 85730; 86780; 86850; 86900; 86901; 88302; 99221; J7120; G0378; J2405

== ENCOUNTER → 2024-06-05 | Outpatient (CLI) | payer OTHER, SELFPAY ==
[2024-06-10 15:09] LABS: HPV APTIMA, High Risk Negative (Negative)
== END | disposition home or self-care (01) ==
LOC: LABSPEC 15:53
PROVIDERS: Referring Provider Obstetrics & Gynecology; Visit Provider Obstetrics & Gynecology
DX: Z12.4 Encounter for screening for malignant neoplasm of cervix (principal)
CPT/HCPCS: 87624; 88175; G0145

== ENCOUNTER → 2025-06-10 | Outpatient (CLI) | payer OTHER, SELFPAY ==
[2025-06-10 12:24] LABS: Hematocrit 42.7 % (37-47); Hemoglobin 14.0 g/dL (12.0-15.0); Immature Granulocytes Count 0.020 X10^3/uL (0.0-0.0); Mean Corp Hgb Conc 32.8 g/dL (32-36); Mean Corpuscular Volume 90.3 fL (81-99); Mean Platelet Vol. 12.5 fl (6.2-12.0); NRBC Flagged by Analyzer 0 % (0-5); Platelet Count 154 K/mm3 (150-450); RBC Distribution Width CV 13.3 % (11.6-14.6); RBC Distribution Width SD 44.0 fl (35.1-43.9); Red Blood Count 4.73 M/mm3 (4.2-5.4); White Blood Count 4.9 K/mm3 (4.4-11.0)
== END | disposition home or self-care (01) ==
PROVIDERS: Referring Provider Obstetrics & Gynecology; Visit Provider Obstetrics & Gynecology
DX: D69.6 Thrombocytopenia, unspecified (principal)
CPT/HCPCS: 36415; 85025

== ENCOUNTER → 2025-08-07 | Outpatient (CLI) | payer OTHER, SELFPAY ==
--- NOTE | 2025-08-07 10:15 | BI_ITS ---
EXAM: SCRN MAMM (CAD)W/CHARLIE BILAT DATE: 08/07/2025 CLINICAL HISTORY: F, Age 40 y/o , SCREENING MAMMOGRAM TECHNIQUE: Procedure Code: [id number] Modality: MG Procedure: SCRN MAMM (CAD)W/CHARLIE BILAT COMPARISON: Prior exam(s) dated 03/08/2023. FINDINGS: TISSUE DENSITY: The breasts are extremely dense, which lowers the sensitivity of mammography. The mammogram demonstrates that the patient has dense breasts. Supplemental screening with whole breast ultrasound or MRI may be considered for further evaluation. Bilateral Breast Mammographic Findings: There is an asymmetry with associated distortion in the superior right breast at middle depth visualized on the MLO view. No significant masses, calcifications or other abnormalities are identified in the left breast. BI/SCRN MAMM (CAD)W/CHARLIE BILAT IMPRESSION: The asymmetry with associated distortion in the superior right breast requires further evaluation. Recommend diagnostic mammogram of the right breast and ultrasound on the day of diagnostic if indica ryland. OVERALL FINAL ASSESSMENT BI-RADS 0: INCOMPLETE - NEED ADDITIONAL IMAGING EVALUATION. RECOMMENDATION: Additional Views obtained/call backs A letter with findings and recommendations will be mailed to the patient. Reading Location: [id number]
== END | disposition home or self-care (01) ==
PROVIDERS: Referring Provider Obstetrics & Gynecology; Visit Provider Obstetrics & Gynecology
DX: Z12.31 Encounter for screening mammogram for malignant neoplasm of breast (principal)
CPT/HCPCS: 77063; 77067

== ENCOUNTER → 2025-08-13 | Outpatient (CLI) | payer OTHER, SELFPAY ==
--- NOTE | 2025-08-13 09:25 | BI_ITS ---
EXAM: DIAG MAMM W/CAD, UNILAT 08/13/2025 CLINICAL HISTORY: F, Age 40 y/o , RIGHT ASYMMETRY TECHNIQUE: Procedure Code: [id number] Modality: MG Procedure: DIAG MAMM W/CAD, UNILAT. 90 degree lateral and compression spot views of the right breast. COMPARISON: Prior exam(s) dated August 07, 2025.. FINDINGS: TISSUE DENSITY: The breasts are extremely dense, which lowers the sensitivity of mammography. Bilateral Breast Mammographic Findings: No significant masses, calcifications or other abnormalities are identified. BI/DIAG MAMM W/CAD, UNILAT IMPRESSION: No mammographic abnormality is seen with the additional views. Targeted sonogr aphic correlation recommended. OVERALL FINAL ASSESSMENT BI-RADS 0: INCOMPLETE - NEED ADDITIONAL IMAGING EVALUATION. RECOMMENDATION: Ultrasound Recommended A letter with findings and recommendations will be mailed to the patient. Reading Location: [place] [id number]
--- NOTE | 2025-08-13 10:06 | US_ITS ---
PROCEDURE: BREAST LIMITED UNILATERAL 08/13/2025 REASON FOR EXAM: F, Age 40 y/o , ABNORMAL MAMMOGRAM COMPARISON: Prior mammogram done earlier in the day.. TECHNIQUE: Procedure Code: USBRSTLIMIT Modality: US Procedure: BREAST LIMITED UNILATERAL FINDINGS: There is a 1.3 cm x 1 cm x 0.6 cm echogenic nodule at the 11 o'clock position of the breast at 7 cm from the nipple. This most likely represents a lipoma. A similar-appearing echogenic nodule is seen at the 10 o'clock position of the breast at 7 cm from the nipple. This is suggestive of a lipoma as well. US/Breast Limited Unilateral IMPRESSION: Findings suggestive of 2, adjacent lipomas at the 10 and 11 o'clock position of the breast at 7 cm from the nipple. Clinical correlation recommended. BI-RADS 2: BENIGN RECOMMENDATION: Routine annual follow-up in 1 Year Reading Location: [place] [id number]
== END | disposition home or self-care (01) ==
LOC: OPBI 09:22
PROVIDERS: Referring Provider Obstetrics & Gynecology; Visit Provider Obstetrics & Gynecology
DX: R92.8 Other abnormal and inconclusive findings on diagnostic imaging of breast (principal)
CPT/HCPCS: 76642; 77061; 77065; G0279